=== PATIENT | male | born 1965 | race Caucasian/White ===

== ENCOUNTER 2019-05-19 09:58 | Day surgery (SDC) | payer BC ==
[2019-05-19] VITALS (588 sets, daily range): BP systolic 135–168; BP diastolic 78–100; PULSE 60–89; TEMP 2; O2SAT 76–100
[~2019-05-19] VITALS: Ht 182.9 cm; Wt 122.6 kg
[~2019-05-19 09:58] MED LIST: ALDACTONE 25MG25 M1 PO; ASPIRIN 32325 MG/TAB PO; CILOSTAZOL100 MG PO; CLEOCIN HC150 MG/CAP PO; COREG 3.123.125 MG/T PO; COREG3.125 MG PO; DIFLUCAN 100MG100 MG PO; DILAUDID 4MG TAB4 MG PO; FLAGYL500 MG PO; LEVAQUIN 5500 MG/TA1 PO; LIP PO; LIPITOR 40MG TA40 MG PO; NITRO-DUR0.4 MG/PAT TD; NITROSTAT0.4 MG/TAB SL; NO HOME MEDICATIONS; NORCO 325 MG-7.1 TAB PO; OMNICEF 300MG300 MG PO; PACERONE400 MG PO; PLAVIX 75MG TAB75 MG PO; PROAIR HFA0.09 MG/AC IH; SENOKOT8.6 MG PO; SPIRIVA RE2.5 MCG/Ac IH; TEFLARO400 MG IV; TORADOL30 MG/ML IV; TYLENOL 325MG325 MG PO; ZESTRIL 5MG5 MG PO; ZESTRIL5 MG PO; ZITHROMAX 250M250 MG PO; ZOFRAN 4MG T4 MG/TAB IV; [UNRECOGNIZED DRUG - CODE] PO
[2019-05-19 10:55] LABS: HEMATOCRIT 45.7 % (42.0-52.0); HEMOGLOBIN 15.3 g/dl (13.5-18.0); MEAN CELL VOLUME 99 fl (80.0-100.0); MEAN CORPUSCULAR HEMOGLOBIN 33 pg (27.0-31.0); MEAN CORPUSCULAR HGB CONC 34 g/dl (33.0-37.0); MEAN PLATELET VOLUME 10.5 fl (7.4-10.4); PLATELET COUNT 183 K/mm3 (130-400); REDCELL DISTRIBUTION WIDTH-CV 14.9 % (11.5-14.5)
[2019-05-19 10:59] LABS: CALCIUM 9.3 mg/dL (8.4-10.2); CREATININE, serum 0.98 (0.66-1.25); POTASSIUM 4.7 mmol/L (3.4-5.0)
[2019-05-19 11:05] LABS: INR 1.2 (0.8-3.0); PROTHROMBIN TIME 13.5 SECONDS (9.7-12.8)
[2019-05-19 11:08] LABS: PARTIAL THROMBOPLASTIN TIME 29.6 SECONDS (26.0-37.0)
--- NOTE | 2019-05-19 12:36 | NUR ---
SEE MERGE DOCUMENTATION FOR MEDICATION ADMINISTRATION TIMES AND INTRA/POST PROCEDURE SEDATION ASSESSMENTS. RIGHT RADIAL ACCESS EVALUATED BY MD; PLAN FOR RIGHT BRACHIAL APPROACH WITH US GUIDANCE.
--- NOTE | 2019-05-19 13:38 | NUR ---
Post-cath VORB from Dr Colindres for 1/2NS at 100ml/hr x 4 hrs. Also order received for 2nd bag of Angiomax to be hung. Instructions to DC Angiomax after completion of 2nd bag. Pt with EF 30%; ok with fluids, order for 20mg Lasix IV when leaving Check Inspector. All orders read back and verified with physician.
--- NOTE | 2019-05-19 14:30 | NUR ---
PATIENT NOTED TO BE GETTING UP AT SIDE OF BED SHORTLY AFTER ARRIVING TO ICU. ORDERS REFLECT BEDREST FOR 2 HOURS. PATIENT WAS EDUCATED ON BEDREST ORDER AND RESTRICTIONS FOR RIGHT ARM R/T LEFT HEART CATH PROCEDURE. HE VERBALIZES UNDERSTANDING. RIGHT BRACHIAL SITE EXAMINED AND IS CLEAN, DRY AND IS SOFT WITH NO EVIDENCE OF HEMATOMA OR BLEEDING.
--- NOTE | 2019-05-19 22:44 | NUR ---
WHILE PT WAS SLEEPING HIS OXYGEN DROPPED TO 82 ON RA. PT PLACED ON 2L NC AND SATING 93%. WILL CONTINUE TO MONITOR.
[2019-05-20] VITALS (781 sets, daily range): BP systolic 135–158; BP diastolic 71–92; PULSE 63–67; TEMP 97.3–98.7; O2SAT 84–100
[2019-05-20 05:20] LABS: BASO % 0.5 % (0.0-2.0); EOS # 0.3 (0.0-0.7); EOS % 3.2 % (0-4.0); GRAN # 5.1 (1.4-6.5); GRAN % 64.8 % (42.2-75.2); HEMATOCRIT 45.4 % (42.0-52.0); HEMOGLOBIN 14.7 g/dl (13.5-18.0); LYMPH # 1.5 (1.2-3.4); LYMPH % 18.9 % (20.0-51.0); MEAN CELL VOLUME 101 fl (80.0-100.0); MEAN CORPUSCULAR HEMOGLOBIN 33 pg (27.0-31.0); MEAN CORPUSCULAR HGB CONC 32 g/dl (33.0-37.0); MEAN PLATELET VOLUME 10.5 fl (7.4-10.4); MONO % 12.3 % (1.7-9.3); PLATELET COUNT 181 K/mm3 (130-400); RED BLOOD COUNT 4.51 M/mm3 (4.20-5.60); REDCELL DISTRIBUTION WIDTH-CV 14.9 % (11.5-14.5)
[2019-05-20 05:35] LABS: CALCIUM 9.2 mg/dL (8.4-10.2); CREATININE, serum 1.12 (0.66-1.25); POTASSIUM 4.7 mmol/L (3.4-5.0)
--- NOTE | 2019-05-20 08:43 | NUR ---
pATIENT SITTING UP LEGS OVER SIDE OF BED INDEPENDENT DENIES PAIN OR DISCOMFORT
--- NOTE | 2019-05-20 09:59 | NUR ---
Initial visit; Patient thanked Management Technician for looking in on him and offering God's blessings.
[2019-05-20] MEDS ORDERED: LASIX 40MG TABL40 MG PO (13:45)
--- NOTE | 2019-05-20 14:34 | NUR ---
pATIENT DISCHARGED WITH VBERBAL AND WRIITTEN INSTRUCTIONS. pATIENT IS ABLE TO VERBALISE INSTRUCTION S WELL SIGNED DISCHARGE PAPERWORK
== END 2019-05-20 14:06 | disposition home or self-care (01) ==
LOC: COL.CAR 09:58 → ICU 14:32 → COL.CAR 05-20 14:06
PROVIDERS: Internal Medicine Interventional Cardiology
DX: I25.10 Atherosclerotic heart disease of native coronary artery without angina pectoris (principal); I50.21 Acute systolic (congestive) heart failure; F17.210 Nicotine dependence, cigarettes, uncomplicated; Z95.5 Presence of coronary angioplasty implant and graft; Z79.82 Long term (current) use of aspirin; J44.9 Chronic obstructive pulmonary disease, unspecified
CPT/HCPCS: OP; C1725; C1769; C1874; C1887; C9600; J0583; J1644; J1940; J2250; J3010; Q9967

== ENCOUNTER 2019-05-22 21:25 | Emergency (ER) | payer BC ==
[~2019-05-22] VITALS: Ht 182.9 cm; Wt 111.4 kg
[~2019-05-22 21:25] MED LIST changes: +LASIX 40MG TABL40 MG PO
[2019-05-22 21:30] VITALS: TEMP 98.5
[2019-05-22 21:42] LABS: BASO # 0.1 (0.0-0.2); BASO % 0.4 % (0.0-2.0); EOS # 0.3 (0.0-0.7); EOS % 2.5 % (0-4.0); GRAN # 7.4 (1.4-6.5); GRAN % 59.2 % (42.2-75.2); HEMATOCRIT 48.9 % (42.0-52.0); HEMOGLOBIN 16.2 g/dl (13.5-18.0); LYMPH # 3.4 (1.2-3.4); LYMPH % 27.4 % (20.0-51.0); MEAN CELL VOLUME 100 fl (80.0-100.0); MEAN CORPUSCULAR HEMOGLOBIN 33 pg (27.0-31.0); MEAN CORPUSCULAR HGB CONC 33 g/dl (33.0-37.0); MEAN PLATELET VOLUME 10.5 fl (7.4-10.4); MONO # 1.3 (0.1-0.6); MONO % 10.3 % (1.7-9.3); RED BLOOD COUNT 4.88 M/mm3 (4.20-5.60)
[2019-05-22 21:46] LABS: PLATELET COUNT 281 K/mm3 (130-400)
[2019-05-22 21:50] LABS: INR 1.2 (0.8-3.0); PROTHROMBIN TIME 14.3 SECONDS (9.7-12.8)
[2019-05-22 21:58] LABS: ALBUMIN 3.8 gm/dL (3.5-5.0); BILIRUBIN,TOTAL 1.1 mg/dL (0.0-1.0); C-REACTIVE PROTEIN 4.5 mg/dL (0.0-0.9); CALCIUM 9.3 mg/dL (8.4-10.2); CREATININE, serum 1.51 (0.66-1.25); POTASSIUM 4.6 mmol/L (3.4-5.0); TOTAL PROTEIN 7.3 gm/dL (6.4-8.2)
[2019-05-22 22:09] LABS: TROPONIN-I 0.121 ng/mL (0.000-0.035)
[2019-05-22 22:17] LABS: MAGNESIUM 2.2 mg/dL (1.6-2.3); PHOSPHOROUS 4.6 mg/dL (2.5-4.5)
[2019-05-23 00:01] VITALS: BP 146/92; PULSE 71
== END 2019-05-23 00:08 | disposition short-term general hospital (02) ==
LOC: COL.ER 21:25
PROVIDERS: Emergency Medicine
DX: I21.4 Non-ST elevation (NSTEMI) myocardial infarction (principal); J18.1 Lobar pneumonia, unspecified organism; J90 Pleural effusion, not elsewhere classified; I11.0 Hypertensive heart disease with heart failure; I50.9 Heart failure, unspecified; E78.5 Hyperlipidemia, unspecified; I25.10 Atherosclerotic heart disease of native coronary artery without angina pectoris; F17.210 Nicotine dependence, cigarettes, uncomplicated; Z79.82 Long term (current) use of aspirin; Z95.5 Presence of coronary angioplasty implant and graft
CPT/HCPCS: J0692; J1644; J2270; J2405

== ENCOUNTER → 2019-06-01 | Outpatient (CLI) | payer BC | LOC: ZCOL.LAB 13:24 | DX: R06.02 Shortness of breath (principal) ==

== ENCOUNTER 2019-06-18 09:02 | Outpatient (RCR) | payer BC ==
[~2019-06-18] VITALS: Ht 182.9 cm; Wt 119.0 kg
--- NOTE | 2019-06-18 09:20 | NUR ---
Pt arrives to medical unit, ambulates into rm 317 with steady gait, A&O x 4. POC reviewed with pt. No needs reported at this time. Call light in reach.
[2019-06-18 09:55] VITALS: BP 152/87; PULSE 63; TEMP 97.4
[2019-06-18 10:42] LABS: CALCIUM 9.1 mg/dL (8.4-10.2); CREATININE, serum 1.35 (0.66-1.25)
--- NOTE | 2019-06-18 16:36 | NUR ---
Lasix infusion complete for today. VS assessed, stable. Pt agrees to same time for infusion on 06/19/19. Pt ambulates out of facility with steady gait.
[2019-06-18 16:37] VITALS: BP 145/69; PULSE 65
[2019-06-19 09:02] VITALS: BP 165/85; BP 175/73; PULSE 80; TEMP 97.6
--- NOTE | 2019-06-19 09:24 | NUR ---
Pt arrives to medical unit for outpt infusion, rm 317. Ambulates into rm with steady gait, A&O x 4. POC reviewed with pt, verbalizes understanding. This nurse in room to start IV. Labs pending.
[2019-06-19] MEDS ORDERED: PROAIR HFA0.09 MG/AC IH (09:59)
[2019-06-19] MEDS ORDERED: PLAVIX 75MG TAB75 MG PO (10:04)
[2019-06-19 11:15] LABS: CREATININE, serum 1.34 (0.66-1.25); POTASSIUM 3.7 mmol/L (3.4-5.0)
[2019-06-19 11:23] VITALS: BP 161/81; PULSE 65; TEMP 98.2
[2019-06-19 14:45] VITALS: BP 163/82; PULSE 72
[2019-06-21 13:14] LABS: CALCIUM 9.1 mg/dL (8.4-10.2); CREATININE, serum 1.1 (0.66-1.25); POTASSIUM 4.1 mmol/L (3.4-5.0)
[2019-06-21 13:15] VITALS: BP 140/74; PULSE 75; TEMP 98
[2019-06-21 15:30] VITALS: BP 146/80; PULSE 65; TEMP 97.2
[2019-06-21 16:56] VITALS: BP 146/72; PULSE 79; TEMP 97.9
[2019-06-22 12:55] LABS: CALCIUM 9.1 mg/dL (8.4-10.2); CREATININE, serum 1.24 (0.66-1.25); POTASSIUM 3.9 mmol/L (3.4-5.0)
[2019-06-22 13:23] VITALS: BP 134/76; PULSE 63
[2019-06-22 13:30] VITALS: BP 134/76; PULSE 62
[2019-06-22 14:00] VITALS: BP 146/76; PULSE 62
[2019-06-22 15:22] VITALS: BP 147/83; PULSE 63
[2019-06-22 16:33] VITALS: BP 142/84; PULSE 63
--- NOTE | 2019-06-22 18:09 | NUR ---
Per pt request,INT left in place for tomorrow's infusion.Wrapped in Coban.
[2019-06-23 12:10] LABS: INR 1.2 (0.8-3.0); PROTHROMBIN TIME 13.7 SECONDS (9.7-12.8)
[2019-06-23 12:20] LABS: CALCIUM 9.1 mg/dL (8.4-10.2); CREATININE, serum 1.38 (0.66-1.25); POTASSIUM 4.1 mmol/L (3.4-5.0)
[2019-06-23 12:42] VITALS: BP 114/79; PULSE 62; TEMP 98.3
[2019-06-23] MEDS ORDERED: LIPITOR 40MG TA40 MG PO (13:06)
[2019-06-23] MEDS ORDERED: COREG 3.123.125 MG/T PO (13:06)
[2019-06-23] MEDS ORDERED: PLAVIX 75MG TAB75 MG PO (13:07)
[2019-06-23] MEDS ORDERED: LASIX 40MG TABL40 MG PO (13:07)
[2019-06-23] MEDS ORDERED: ALDACTONE 25MG25 M1 PO (13:08)
[2019-06-23] MEDS ORDERED: NITROSTAT0.4 MG/TAB SL (13:08)
[2019-06-23] MEDS ORDERED: TRELEGY ELLIPT1 EACH IH (13:13)
[2019-06-23] MEDS ORDERED: PACERONE400 MG PO (13:14)
--- NOTE | 2019-06-23 13:48 | NUR ---
Pt to procedure at this time.
[2019-06-23 14:36] VITALS: BP 164/89; PULSE 74
--- NOTE | 2019-06-23 14:40 | NUR ---
Pt returned from procedure at this time.Dressing to back observed clean,dry,intact.
[2019-06-23 15:10] VITALS: BP 154/91; PULSE 71
[2019-06-23 15:53] VITALS: BP 162/103; PULSE 74
[2019-06-23 16:10] VITALS: BP 158/107; PULSE 65
--- NOTE | 2019-06-23 18:03 | NUR ---
Per pt request,INt left in place for next day infusion,wrapped in coban.pt escorted out via wheelchair.
[2019-06-24 12:35] LABS: CREATININE, serum 1.41 (0.66-1.25); POTASSIUM 3.8 mmol/L (3.4-5.0)
[2019-06-24 12:37] VITALS: BP 143/79; TEMP 98.4
--- NOTE | 2019-06-24 13:29 | NUR ---
Reviewed labs with Dr Colindres
[2019-06-24 13:37] VITALS: BP 142/82; PULSE 72; TEMP 97.8
[2019-06-24 16:15] VITALS: BP 146/83; PULSE 66; TEMP 97.7
[2019-06-25 10:43] LABS: CALCIUM 8.8 mg/dL (8.4-10.2); CREATININE, serum 1.17 (0.66-1.25); POTASSIUM 3.5 mmol/L (3.4-5.0)
--- NOTE | 2019-06-25 15:20 | NUR ---
Infusion complete, no issues noted, IV removed tip intact.
== END 2019-06-25 18:00 | disposition home or self-care (01) ==
LOC: EUO 09:02 → MEDICAL 10:20 → EUO 06-19 14:45 → MEDICAL 06-21 12:18 → EUO 06-21 12:30
PROVIDERS: Internal Medicine Interventional Cardiology; Radiology Diagnostic Radiology
DX: I50.22 Chronic systolic (congestive) heart failure (principal); J90 Pleural effusion, not elsewhere classified
CPT/HCPCS: OP; J1940

== ENCOUNTER 2019-06-23 11:49 | Outpatient (CLI) | payer BC ==
[~2019-06-23] VITALS: Ht 182.9 cm; Wt 121.6 kg
[2019-06-23 12:53] VITALS: BP 114/72; PULSE 63
[2019-06-23] MEDS ORDERED: LIPITOR 40MG TA40 MG PO (13:06)
[2019-06-23] MEDS ORDERED: COREG 3.123.125 MG/T PO (13:06)
[2019-06-23] MEDS ORDERED: PLAVIX 75MG TAB75 MG PO (13:07)
[2019-06-23] MEDS ORDERED: LASIX 40MG TABL40 MG PO (13:07)
[2019-06-23] MEDS ORDERED: NITROSTAT0.4 MG/TAB SL (13:08)
[2019-06-23] MEDS ORDERED: ALDACTONE 25MG25 M1 PO (13:08)
[2019-06-23] MEDS ORDERED: TRELEGY ELLIPT1 EACH IH (13:13)
[2019-06-23] MEDS ORDERED: PACERONE400 MG PO (13:14)
[2019-06-23 15:00] LABS: TOTAL PROTEIN,PLEURAL FLUID 2.4 gm/dL
== END 2019-06-23 17:16 | disposition home or self-care (01) ==
LOC: COL.RAD 11:49
PROVIDERS: Internal Medicine Interventional Cardiology
DX: J90 Pleural effusion, not elsewhere classified (principal)

== ENCOUNTER 2019-08-03 13:55 | Emergency (ER) | payer BC ==
[~2019-08-03] VITALS: Ht 182.9 cm; Wt 125.0 kg
[2019-08-03 13:55] VITALS: BP 178/106; TEMP 96.6
[2019-08-03 14:20] LABS: BASO % 0.4 % (0.0-2.0); EOS # 0.1 (0.0-0.7); EOS % 0.8 % (0-4.0); GRAN # 6.9 (1.4-6.5); GRAN % 71.2 % (42.2-75.2); HEMATOCRIT 51.7 % (42.0-52.0); HEMOGLOBIN 16.4 g/dl (13.5-18.0); LYMPH # 1.9 (1.2-3.4); LYMPH % 19.6 % (20.0-51.0); MEAN CELL VOLUME 102 fl (80.0-100.0); MEAN CORPUSCULAR HEMOGLOBIN 33 pg (27.0-31.0); MEAN CORPUSCULAR HGB CONC 32 g/dl (33.0-37.0); MEAN PLATELET VOLUME 9.6 fl (7.4-10.4); MONO # 0.7 (0.1-0.6); MONO % 7.7 % (1.7-9.3); PLATELET COUNT 247 K/mm3 (130-400); RED BLOOD COUNT 5.05 M/mm3 (4.20-5.60); REDCELL DISTRIBUTION WIDTH-CV 17.2 % (11.5-14.5)
[2019-08-03 14:22] LABS: INR 1.2 (0.8-3.0); PROTHROMBIN TIME 14.1 SECONDS (9.7-12.8)
[2019-08-03 14:34] LABS: BILIRUBIN,TOTAL 1.4 mg/dL (0.0-1.0); CALCIUM 9.4 mg/dL (8.4-10.2); CREATININE, serum 1.04 (0.66-1.25); POTASSIUM 4.2 mmol/L (3.4-5.0); TOTAL PROTEIN 7.4 gm/dL (6.4-8.2)
[2019-08-03 14:47] LABS: TROPONIN-I 0.047 ng/mL (0.000-0.035)
[2019-08-03 16:13] LABS: TOTAL PROTEIN,PLEURAL FLUID 2.2 gm/dL
[2019-08-03 16:29] LABS: PLEURAL FLUID RBC 0 /mm3 (0-0); PLEURAL FLUID WBC 194 /mm3
[2019-08-03 16:32] LABS: PLEURAL FLUID COLOR YELLOW
[2019-08-03 16:33] LABS: PLEURAL FLUID APPEARANCE CLEAR
[2019-08-03 17:52] VITALS: PULSE 77
== END 2019-08-03 17:52 | disposition left against medical advice (07) ==
LOC: COL.ER 13:55
PROVIDERS: Emergency Medicine; Physician Assistant
DX: J90 Pleural effusion, not elsewhere classified (principal); I50.9 Heart failure, unspecified; J95.811 Postprocedural pneumothorax; I25.10 Atherosclerotic heart disease of native coronary artery without angina pectoris; Z79.02 Long term (current) use of antithrombotics/antiplatelets; Z79.82 Long term (current) use of aspirin; Z79.51 Long term (current) use of inhaled steroids

== ENCOUNTER → 2019-08-03 | Outpatient (CLI) | payer BC ==
[~2019-08-03] MED LIST changes: +TRELEGY ELLIPT1 EACH IH
== END ==
LOC: COL.RAD 14:00
DX: J90 Pleural effusion, not elsewhere classified (principal)

== ENCOUNTER → 2019-09-07 | Outpatient (CLI) | payer BC ==
[~2019-09-07] VITALS: Ht 182.9 cm; Wt 128.0 kg
[~2019-09-07] MED LIST changes: +NITRO-DUR0.4 MG/PAT
[2019-09-07 12:52] VITALS: BP 140/80; PULSE 89
[2019-09-07 14:16] VITALS: BP 140/84; PULSE 77
== END ==
LOC: COL.RAD 12:27
DX: J90 Pleural effusion, not elsewhere classified (principal)

== ENCOUNTER 2019-09-12 15:00 | Outpatient (RCR) | payer BC ==
[2019-08-05] VITALS (15 sets, daily range): BP systolic 120–151; BP diastolic 66–122; PULSE 59–87; TEMP 97.9
--- NOTE | 2019-08-05 11:15 | NUR ---
Pt arrived via ambulatory to Express Unit via ambulatory.Pt roomed by Michael Puentes.
--- NOTE | 2019-08-05 11:25 | NUR ---
Pt observed short of breath when this nurse entered room.Attempted to get SAT but waveform not good on finger.Fingers felt cool to touch.Called Rojulian,RT for assistance.Observed 77%-80% when probe placed on forhead.Pt observed 84% after a couple minutes of rest.Will continue to monitor.
--- NOTE | 2019-08-05 11:43 | NUR ---
Rt Christel placed pt on 2 liters of oxygen via nasal cannula.Pt is now 99% on 2 liters.
--- NOTE | 2019-08-05 11:44 | NUR ---
CALL FROM CONOR DARLING OP SATS IN 70'S. PLACED ON 2 LPM NC SPO2 93%.
--- NOTE | 2019-08-05 11:50 | NUR ---
Dr Colindres notified pt arrived with Sats mid 70s after exertion.Pt Sats on room air observed 84-86 %.Christel RT assessed pt.Per pt report he is sopose to have home oxygen arranged.Pt placed on 2 liters via nasal cannula by RT. notified and order requested for oxygen and titration.Order received for BIPAP.Requested clarification if Dr Colindres wanted to admit pt.Pt currently Express Unit pt.Per Dr Colindres he does not want to admit pt.Adelina,Director called for assistance.
--- NOTE | 2019-08-05 12:00 | NUR ---
Called by Express Unit RN for assistance with patient. RN reports that SaO2 in the 70s when patient was placed on the monitor pre-infusion. Oxygen applied via NC & RN proceeded to call Dr. Colindres to update him on patient status. Order received for bipap; provider advised that bipap not a treatment completed in infusion unit & a higher level of care would be required.
[2019-08-05 12:08] LABS: CALCIUM 9.2 mg/dL (8.4-10.2); CREATININE, serum 1.09 (0.66-1.25); POTASSIUM 4.4 mmol/L (3.4-5.0)
--- NOTE | 2019-08-05 12:20 | NUR ---
Dr. Colindres arrives to Express Unit. Explained that bipap requires a higher level of care than Express Unit. Provider agreed to IMCU outpatient after much explanation & insight from Communications Program Manager.
--- NOTE | 2019-08-05 12:28 | NUR ---
PLACED BIPAP PER DR HENNESSY. 23/02 35%.
--- NOTE | 2019-08-05 12:35 | NUR ---
Patient placed on BIPAP by RT. at this time.99% on BIPAP.
--- NOTE | 2019-08-05 13:45 | NUR ---
Dr. Colindres at bedside. Patient continues on bipap. Dr. Colindres wanting to explore options for patient to have home bipap. Patient had started the process for home oxygen, but was not able to complete the process prior to coming in for treatment today. Will consult social media manager for bipap & home oxygen assistance; Elba notified. Bipap removed for 2 minutes to talk with patient about plan & options; Sao2 decreased from 98% on bipap to 88% on 2L with labored respirations noted.
--- NOTE | 2019-08-05 14:23 | NUR ---
medical services assistant in to see patient for options with bipap & home O2. Patient has not met the requirements to have a sleep study for insurance to cover home bipap. Patient does not want to pursue home bipap at this time. Patient told public health social worker that he will work with company for O2 at home. Dr. Colindres updated.
--- NOTE | 2019-08-05 14:27 | NUR ---
Livestock Yard Attendant was contacted by Jeanine in [employer] as patient may need bi-pap at night and patient requested information about coverage and options. SW contacted [employer] as Jeanine reports patient is in the process of setting up home oxygen. BE advised that with patient's insurance coverage, an in lab sleep study would be required for insurance to cover bi-pap. BE stated that patient would still owe about $500 with insurance coverage. BE stated without sleep study, patient would have to pay $2,000-$3,000. SW met with patient and provided update. Patient states at this time he plans to just get the night oxygen set up through [facility]. BE advised all patient needs to do is contact them to get the equipment set up in his home. ARASELI provided this update to Jeanine in [employer]. No additional concerns at this time.
--- NOTE | 2019-08-05 17:16 | NUR ---
ChristelRT notifed of oxygen oximetry exercise test.Per instructions of Christel,pt placed on room air at this time.
--- NOTE | 2019-08-05 17:24 | NUR ---
Bumex infusion completed.
--- NOTE | 2019-08-05 17:25 | NUR ---
Pt placed back on oxygen after testing completed.Pt requests to remain on oxygen via nasal cannula at this time.Pt requests cup of coffee.Coffee and cookie provided.
--- NOTE | 2019-08-05 17:54 | NUR ---
Dr Colindres notifed of Excer[employer]ise Oximetry test,pt 82% at rest on room air.Order received for continous home oxygen and portable.Allegra at [employer] notified.Test results faxed with order to Allegra.Per Allegra,she will bring portable oxygen to hospital prior to discharge.Mehnaz,Charge nurse notifed and spoke with GHULAM paul.Pt agrees to call [employer] after discharge for home delivery of home tank.Pt sitting at edge of bed.per pt request, BIPAP off at this time.Oxygen on at 2l/min via nasal cannula.
--- NOTE | 2019-08-05 18:45 | NUR ---
Dr Colindres notified by Mehnaz infusion completed.Home oxygen delivered.Vital signs reported and new orders writted by ICU charge,Mehnaz.See flowsheet for vitals.
--- NOTE | 2019-08-05 18:54 | NUR ---
Pt given discharge instructions by Michael Darby.This nurse present.Pt verbalizes understanding.Home oxygen delivererd here to hospital,teaching by [facility] staff on portable tank. Pt discharged with home oxygen in place via nasal cannula.INT left in place,wrapped in coban and gauze.Pt agrees to return to [facility] tomorrow for infusion.Pt instructed to come throught ER entrance in Am.
--- NOTE | 2019-08-06 07:15 | NUR ---
Patient to ICU 3 via wheelchair by Deloris DARLING with [employer]. Patient arrives with portable O2 on at 2 L and switched to hospital O2 at same flow rate. Patient A/Ox4, denies needs at this time. 0735 Tele monitor applied and VS taken at this time. Morning meal ordered per patient request. Sitting on side of bed, denies needs.
[2019-08-06 08:00] VITALS: BP 136/90; PULSE 62; TEMP 98.2
[2019-08-06 08:29] LABS: CALCIUM 8.9 mg/dL (8.4-10.2); CREATININE, serum 1.05 (0.66-1.25)
[2019-08-06 10:00] VITALS: BP 162/99; PULSE 78
[2019-08-06 12:45] VITALS: BP 154/82; PULSE 76; TEMP 98.2
[2019-08-06 14:32] VITALS: BP 151/93; PULSE 87; TEMP 98.2
--- NOTE | 2019-08-06 15:00 | NUR ---
Patient requests to leave at this time even though Dr. Colindres hasn't returned call to this RN. Patient states "I only live 4 blocks away, I can return if he wants me to." Patient transported to [facility] via wheelchair with INT intact to Left AC wrapped with coban
--- NOTE | 2019-08-07 07:41 | NUR ---
Patient arrives ambulatory with Angela BalesProgram Lead from ED waiting room. No supplemental O2 is in place and patient denies bringing any to wear. Initial O2 on room air is 84%. Patient denies dyspnea. He is placed on 2L O2 per NC and saturation climbs quickly to 92% or greater. Initial VS and assessment as charted. Lab called for BMP and dietary called for patient tray per his request. Peripheral IV to LAC with dressing CDI and without complication. Care assumed.
[2019-08-07 07:43] VITALS: BP 148/96; PULSE 86; TEMP 97.4
--- NOTE | 2019-08-07 07:52 | NUR ---
Bumex and dobutamine gtts started as per orders. See MAR.
[2019-08-07 08:27] LABS: CALCIUM 8.9 mg/dL (8.4-10.2); CREATININE, serum 0.95 (0.66-1.25); POTASSIUM 3.7 mmol/L (3.4-5.0)
[2019-08-07 13:07] VITALS: BP 168/92; PULSE 83; TEMP 97.4
--- NOTE | 2019-08-07 13:07 | NUR ---
Attempt made to contact Dr. Colindres with [facility] and patient report. MD does not answer and voicemail box is full. Patient states he will leave at this time. INT IV discontinued. Patient leaves via ambulatory.
[2019-08-08] VITALS (9 sets, daily range): BP systolic 100–169; BP diastolic 70–117; PULSE 59–90; TEMP 97.9–98.7
--- NOTE | 2019-08-08 12:40 | NUR ---
Called Dr Colindres regarding pt's increased SBP of 150's. stated to continue to monitor and if SBP does not drop back below 130 to administer SL nitro as needed to achieve SBP <130.
[2019-08-08 12:49] LABS: CALCIUM 9.4 mg/dL (8.4-10.2); CREATININE, serum 1.16 (0.66-1.25); POTASSIUM 4.7 mmol/L (3.4-5.0)
--- NOTE | 2019-08-08 13:08 | NUR ---
Entered room for another vital check on pt and pt had removed all monitor equipment including SPO2 monitor and BP again. O2 was also off. Again explained importance of monitoring him while medications were infusing and leaving o2 on for low sats. BP also remains elevated at 169/103. Will give PRN nitro as ordered.
--- NOTE | 2019-08-08 14:08 | NUR ---
Called Dr Colindres's office regarding continued increased BP's despite SL nitro. Left message with nurse who stated she will call back with orders.
--- NOTE | 2019-08-08 18:34 | NUR ---
Explained to pt that he needs to have his portable O2 at all times. Transferred to private car by francia
[2019-08-09] VITALS (10 sets, daily range): BP systolic 127–155; BP diastolic 65–105; PULSE 53–84; TEMP 98
[2019-08-09 13:55] LABS: CALCIUM 9.2 mg/dL (8.4-10.2); CREATININE, serum 1.2 (0.66-1.25); POTASSIUM 3.9 mmol/L (3.4-5.0)
[2019-08-10] VITALS (11 sets, daily range): BP systolic 113–149; BP diastolic 65–95; PULSE 62–91; TEMP 97.9–98.8
--- NOTE | 2019-08-10 12:40 | NUR ---
Pt arrived to Express Unit via ambulatory.Pt roomed by Michael Puentes.Pt arrived with portable oxygen.Placed on 2l via nasal cannula.
[2019-08-10 12:53] LABS: CREATININE, serum 1.19 (0.66-1.25); POTASSIUM 3.9 mmol/L (3.4-5.0)
--- NOTE | 2019-08-10 12:53 | NUR ---
INFUSION STARTED AT THIS TIME PER DR. HENNESSY'S ORDERS. PATIENT SITTING UP AT SIDE OF BED WITH NO COMPLAINTS AT THIS TIME. VS WNL. PATIENT REFUSES BIPAP AT THIS TIME. WILL CONTINUE TO MONITOR.
--- NOTE | 2019-08-10 16:55 | NUR ---
Report to Michael Puentes so she may assume care of pt.
[2019-08-12] VITALS (11 sets, daily range): BP systolic 141–158; BP diastolic 75–97; PULSE 67–76
[2019-08-12 12:22] LABS: CALCIUM 9.1 mg/dL (8.4-10.2); CREATININE, serum 1.14 (0.66-1.25); POTASSIUM 3.7 mmol/L (3.4-5.0)
--- NOTE | 2019-08-12 12:38 | NUR ---
nITRO 0.4 SULIGUAL PER dR Babcock DIRECCTION FOR SBP >130.
--- NOTE | 2019-08-12 13:56 | NUR ---
nITRO 0.4MG SUBLINGUAL FOR BP 154/75.
--- NOTE | 2019-08-12 14:30 | NUR ---
Repor to Michael Osuna.
--- NOTE | 2019-08-12 16:51 | NUR ---
Per pt request bipap off at this time.
[2019-08-13] VITALS (119 sets, daily range): BP systolic 121–153; BP diastolic 80–121; PULSE 58–83; TEMP 98; O2SAT 90–100
[2019-08-14] VITALS (12 sets, daily range): BP systolic 127–149; BP diastolic 75–95; PULSE 63–86; TEMP 98
[2019-08-15] VITALS (10 sets, daily range): BP systolic 134–158; BP diastolic 76–102; PULSE 68–78
--- NOTE | 2019-08-15 13:19 | NUR ---
Pt arrived via ambulatory with portable oxygen at 2 liters via nasal cannula.
[2019-08-15 13:31] LABS: CREATININE, serum 0.99 (0.66-1.25); POTASSIUM 3.6 mmol/L (3.4-5.0)
--- NOTE | 2019-08-15 17:10 | NUR ---
Report to Michael Osuna.
--- NOTE | 2019-08-15 19:44 | NUR ---
PT escorted to visitor entrance via wheelchair where his daughter is waiting for him. pt wearing portable oxygen. pt did well during infusion today, he did have some cramping to rt hand, which did improve prior to his departure. magnesium level was ordered per Dr. Colindres, result is still pending. pt aware of plan per Dr. colindres to continue the infusions roughly every other day for another 10 infusions. pt asked that we call him btw 1530and 1600 tomorrow to schedule. note left on pt's chart.
--- NOTE | 2019-08-17 08:12 | NUR ---
This nurse spoke with pt today.Per pt he is not able to come in for infusion today.Per pt he is not able to begin infusions until Thursday.Order is for every other day.Per pt he wanted to come everyday after Thursday.Pt reports he will call office to report.Appointment made for at 9am.
[2019-08-20] VITALS (9 sets, daily range): BP systolic 124–164; BP diastolic 78–102; PULSE 66–72; TEMP 98.5
[2019-08-20 09:53] LABS: HEMOGLOBIN 14.4 g/dl (13.5-18.0); MEAN CELL VOLUME 101 fl (80.0-100.0); MEAN CORPUSCULAR HEMOGLOBIN 32 pg (27.0-31.0); MEAN CORPUSCULAR HGB CONC 31 g/dl (33.0-37.0); MEAN PLATELET VOLUME 10.1 fl (7.4-10.4); PLATELET COUNT 167 K/mm3 (130-400); RED BLOOD COUNT 4.54 M/mm3 (4.20-5.60); REDCELL DISTRIBUTION WIDTH-CV 16.5 % (11.5-14.5)
[2019-08-20 10:06] LABS: CALCIUM 8.9 mg/dL (8.4-10.2); CREATININE, serum 0.93 (0.66-1.25); POTASSIUM 3.6 mmol/L (3.4-5.0)
--- NOTE | 2019-08-20 16:08 | NUR ---
Pt out for discharge at this time.
[2019-08-21] VITALS (325 sets, daily range): BP systolic 133–168; BP diastolic 83–101; PULSE 70–86; TEMP 98; O2SAT 80–100
[2019-08-21 09:51] LABS: POTASSIUM 3.7 mmol/L (3.4-5.0)
[2019-08-22] VITALS (7 sets, daily range): BP systolic 153–163; BP diastolic 85–93; PULSE 76–91; TEMP 97.4
[2019-08-22 12:54] LABS: HEMOGLOBIN 15.1 g/dl (13.5-18.0); MEAN CELL VOLUME 100 fl (80.0-100.0); MEAN CORPUSCULAR HEMOGLOBIN 32 pg (27.0-31.0); MEAN CORPUSCULAR HGB CONC 32 g/dl (33.0-37.0); MEAN PLATELET VOLUME 10.1 fl (7.4-10.4); PLATELET COUNT 191 K/mm3 (130-400); RED BLOOD COUNT 4.71 M/mm3 (4.20-5.60); REDCELL DISTRIBUTION WIDTH-CV 16.4 % (11.5-14.5)
[2019-08-22 13:03] LABS: CALCIUM 9.2 mg/dL (8.4-10.2); CREATININE, serum 0.91 (0.66-1.25); POTASSIUM 3.5 mmol/L (3.4-5.0)
--- NOTE | 2019-08-22 14:22 | NUR ---
RT was just at bs to initiate Bipap.
[2019-08-23] VITALS (9 sets, daily range): BP systolic 130–175; BP diastolic 73–102; PULSE 76–86
[2019-08-23 14:36] LABS: CALCIUM 9.2 mg/dL (8.4-10.2); CREATININE, serum 0.98 (0.66-1.25); POTASSIUM 3.3 mmol/L (3.4-5.0)
--- NOTE | 2019-08-23 16:00 | NUR ---
Pt refused offer of BIPAP today.Per pt he "sleeps with it on," unable to make phone calls with it in place.
--- NOTE | 2019-08-23 17:25 | NUR ---
Order recieved from Dr Adame.Luz Elena,ICU nurse in to adjust dosing as ordered.
--- NOTE | 2019-08-23 17:42 | NUR ---
Observed dry,cracked feet.Per pt he thinks they "have gone down."With pt permission,this nurse washed bilateral lower legs and feet,moisturizer applied to bilateral lower legs and feet.
--- NOTE | 2019-08-23 17:52 | NUR ---
Report to Michael Osuna.
[2019-08-24] VITALS (8 sets, daily range): BP systolic 136–149; BP diastolic 85–99; PULSE 66–82; TEMP 97.6–98
[2019-08-24 12:45] LABS: CALCIUM 9.1 mg/dL (8.4-10.2); POTASSIUM 3.5 mmol/L (3.4-5.0)
[2019-08-25] VITALS (7 sets, daily range): BP systolic 140–158; BP diastolic 89–98; PULSE 66–81
[2019-08-25 13:09] LABS: CALCIUM 9.3 mg/dL (8.4-10.2); CREATININE, serum 1.01 (0.66-1.25); POTASSIUM 3.5 mmol/L (3.4-5.0)
--- NOTE | 2019-08-25 18:18 | NUR ---
Report to Michael Osuna.
[2019-08-26] VITALS (9 sets, daily range): BP systolic 131–153; BP diastolic 76–97; PULSE 64–92
--- NOTE | 2019-08-26 13:20 | NUR ---
PICC intact right upper arm with sterile dressing change done with insertions site cleansed with chloraprep x 1, chlorhexidine impregnated disk applied, skin prep, stat lock, and tegaderm applied. no signs or symptoms of IV complications noted. no concerns voiced. re-wrapped with shimon to protect catheter. to continue with cares in EU. voiced understanding of instructions.
--- NOTE | 2019-08-26 18:39 | NUR ---
Report to Michael Puentes.
[2019-08-27 09:42] VITALS: BP 154/94; PULSE 84
[2019-08-27 10:45] VITALS: BP 160/112; PULSE 87
[2019-08-27 11:45] VITALS: BP 156/98; PULSE 77
[2019-08-27 12:45] VITALS: BP 158/101; PULSE 87
[2019-08-27 13:45] VITALS: BP 150/93; PULSE 79
[2019-08-27 14:45] VITALS: BP 133/87; PULSE 72
[2019-08-28 09:42] VITALS: BP 159/107; PULSE 94
[2019-08-29 12:34] VITALS: BP 152/89; PULSE 83; TEMP 97.8
[2019-08-29 12:46] LABS: CALCIUM 9.2 mg/dL (8.4-10.2); CREATININE, serum 0.93 (0.66-1.25); POTASSIUM 3.5 mmol/L (3.4-5.0)
[2019-08-29 13:30] VITALS: BP 150/98; PULSE 82
--- NOTE | 2019-08-29 14:10 | NUR ---
patient is in the express unit. Patient's last dose of IV medication is today. With sterile technique right upper arm PICC dressing change done with insertion site cleansed with ChloraPrep 1, chlorhexidine impregnated disc applied, skin prep, StatLock, and Tegaderm applied. No signs or symptoms of IV complications noted. No concerns voiced. Patient to return next Thursday at 3 p.m. for cares. Patient voiced understanding of instructions.
[2019-08-29 14:30] VITALS: BP 147/92; PULSE 80
[2019-08-29 16:30] VITALS: BP 148/94; PULSE 88
[2019-08-29 18:46] VITALS: BP 146/89; PULSE 82; TEMP 97.8
[2019-09-05 15:04] VITALS: BP 147/94; PULSE 95; TEMP 97.6
--- NOTE | 2019-09-05 15:10 | NUR ---
Here for cares. PICC intact right upper arm. with sterile technique right upper arm PICC dressing change done with insertion site cleansed with chloraprep x 1, chlorhexidine impregnated disk applied, skin prep, stat lock, and tegaderm applied. no signs or symptoms of IV complications noted. no concerns voiced. wrapped with shimon to protect catheter.
[2019-09-05 15:24] LABS: BASO % 0.3 % (0.0-2.0); EOS # 0.1 (0.0-0.7); EOS % 1.5 % (0-4.0); GRAN # 5.9 (1.4-6.5); GRAN % 74.1 % (42.2-75.2); HEMATOCRIT 47.6 % (42.0-52.0); HEMOGLOBIN 15.2 g/dl (13.5-18.0); LYMPH # 1.3 (1.2-3.4); LYMPH % 16.3 % (20.0-51.0); MEAN CELL VOLUME 101 fl (80.0-100.0); MEAN CORPUSCULAR HEMOGLOBIN 32 pg (27.0-31.0); MEAN CORPUSCULAR HGB CONC 32 g/dl (33.0-37.0); MONO # 0.6 (0.1-0.6); MONO % 7.5 % (1.7-9.3); PLATELET COUNT 145 K/mm3 (130-400); REDCELL DISTRIBUTION WIDTH-CV 16.9 % (11.5-14.5)
[2019-09-05 15:42] LABS: CALCIUM 8.7 mg/dL (8.4-10.2); POTASSIUM 3.7 mmol/L (3.4-5.0)
[~2019-09-12] VITALS: Ht 182.9 cm; Wt 128.2 kg
[2019-09-12 15:00] VITALS: BP 156/101; PULSE 97
--- NOTE | 2019-09-12 15:00 | NUR ---
Here for cares. with sterile technique right upper arm PICC sterile dressing change done with insertion site cleansed with chloraprep x 1, chlorhexidine impregnated disk applied, skin prep, stat lock, and tegaderm applied. no signs or symptoms of IV complications noted. no concerns voiced. re-wrapped with shimon to protect catheter. patient reported he has contacted element setter office for plan of care. to return next week for cares. voiced understanding of instructions.
[2019-09-12 15:27] LABS: HEMATOCRIT 47.3 % (42.0-52.0); HEMOGLOBIN 15.1 g/dl (13.5-18.0); MEAN CELL VOLUME 101 fl (80.0-100.0); MEAN CORPUSCULAR HEMOGLOBIN 32 pg (27.0-31.0); MEAN CORPUSCULAR HGB CONC 32 g/dl (33.0-37.0); PLATELET COUNT 155 K/mm3 (130-400); RED BLOOD COUNT 4.68 M/mm3 (4.20-5.60); REDCELL DISTRIBUTION WIDTH-CV 16.9 % (11.5-14.5)
[2019-09-12 15:38] LABS: CREATININE, serum 0.91 (0.66-1.25); MAGNESIUM 1.6 mg/dL (1.6-2.3); POTASSIUM 3.3 mmol/L (3.4-5.0)
[2019-09-15] MEDS ORDERED: PACERONE400 MG PO (15:21)
[2019-09-15] MEDS ORDERED: ALDACTONE50 MG PO (15:21)
[2019-09-15] MEDS ORDERED: *Potassium Replaceme MC (15:22)
[2019-09-15] MEDS ORDERED: ASPIRIN E.C. 8181 MG PO (15:22)
--- NOTE | 2019-09-16 16:19 | NUR ---
Pt was admitted to hospital.New acct created
[2019-10-04] MEDS ORDERED: CORDARONE200 MG/TAB PO (15:57)
[2019-10-04] MEDS ORDERED: ASPIRIN 32325 MG/TAB PO (15:58)
[2019-10-04] MEDS ORDERED: ENTRESTO 24 MG1 EACH PO (16:00)
[2019-10-04] MEDS ORDERED: LANOXIN 0.25M0.25 MG PO (16:01)
[2019-10-04] MEDS ORDERED: COREG 3.123.125 MG/T PO (16:02)
[2019-10-04] MEDS ORDERED: NITRO-DUR0.4 MG/PAT TD (16:03)
== END 2019-09-16 16:20 | disposition home or self-care (01) ==
LOC: EUO 15:00
PROVIDERS: Internal Medicine Interventional Cardiology
DX: I50.22 Chronic systolic (congestive) heart failure (principal); Z79.899 Other long term (current) drug therapy
CPT/HCPCS: C1751; J1250; J1940

== ENCOUNTER 2019-09-12 17:44 | Inpatient (IN) | payer BC ==
[2019-09-12] VITALS (241 sets, daily range): BP systolic 138–169; BP diastolic 90–111; PULSE 85–89; TEMP 97.5–98.2; O2SAT 70–100
[~2019-09-12] VITALS: Ht 182.9 cm; Wt 112.9 kg
--- NOTE | 2019-09-12 18:00 | NUR ---
Patient transferred to ICU03 via wheelchair as a direct admit from Dr. Colindres's office. Patient ambulates from wheelchair to bed without complications. Patient connected to bedside monitor, oxygen applied via nasal cannula, and full assessment completed. at the bedside at this time. Bed in lowest position. Call light within reach. Side rails up x2. Patient has no complaints or concerns at this time.
--- NOTE | 2019-09-12 19:43 | NUR ---
Bedside shift report given to PHONG Vega at this time.
[2019-09-13] VITALS (793 sets, daily range): BP systolic 101–155; BP diastolic 56–126; PULSE 74–92; TEMP 97.6–98.1; O2SAT 69–100
--- NOTE | 2019-09-13 05:02 | NUR ---
2055 - CLARIFIED DOBUTAMINE DRIP AND NITROGLYCERINE DRIP PARAMETERS WITH DR. HENNESSY.
[2019-09-13 06:35] LABS: BASO % 0.5 % (0.0-2.0); EOS # 0.1 (0.0-0.7); EOS % 1.7 % (0-4.0); GRAN # 4.1 (1.4-6.5); GRAN % 70.4 % (42.2-75.2); HEMATOCRIT 44.6 % (42.0-52.0); HEMOGLOBIN 14.1 g/dl (13.5-18.0); LYMPH % 16.8 % (20.0-51.0); MEAN CELL VOLUME 101 fl (80.0-100.0); MEAN CORPUSCULAR HEMOGLOBIN 32 pg (27.0-31.0); MEAN CORPUSCULAR HGB CONC 32 g/dl (33.0-37.0); MEAN PLATELET VOLUME 10.3 fl (7.4-10.4); MONO # 0.6 (0.1-0.6); MONO % 10.3 % (1.7-9.3); PLATELET COUNT 140 K/mm3 (130-400); REDCELL DISTRIBUTION WIDTH-CV 16.8 % (11.5-14.5)
--- NOTE | 2019-09-13 07:00 | NUR ---
BEDSIDE REPORT RECEIVED FROM PHONG FRANCISCO
[2019-09-13 07:54] LABS: ALBUMIN 3.4 gm/dL (3.5-5.0); BILIRUBIN,TOTAL 1.3 mg/dL (0.0-1.0); CALCIUM 8.5 mg/dL (8.4-10.2); CREATININE, serum 0.99 (0.66-1.25); POTASSIUM 3.2 mmol/L (3.4-5.0); TOTAL PROTEIN 6.6 gm/dL (6.4-8.2)
[2019-09-13 08:32] LABS: INR 1.3 (0.8-3.0); PROTHROMBIN TIME 15.2 SECONDS (9.7-12.8)
--- NOTE | 2019-09-13 10:00 | NUR ---
PATIENT HAS ALREADY MET TODAY'S FLUID RESTRICTION LIMIT. HE WAS CAUGHT FILLING HIS CUP UP AT THE SINK WHEN THIS RN WAS NOT IN ROOM. HE IS EDUCATED ON THE IMPORTANCE OF FOLLOWING FLUID RESTRICTION AND WHY IT IS IMPORTANT TO KEEP HIS FLUID INTAKE TO LESS THAN 1 LITER PER DAY. HE VERBALIZES UNDERSTANDING. BIOTENE ORDER OBTAINED FROM DR. HENNESSY TO ASSIST IN PATIENT'S COMPLAINTS OF DRY MOUTH. AWAITING IT TO COME UP FROM PHARMACY
--- NOTE | 2019-09-13 10:52 | NUR ---
Initial visit; Patient thanked Offline Editor forlooking in on him and offeringGarciad's blessings.
--- NOTE | 2019-09-13 15:00 | NUR ---
MEDICATIONS TITRATED A FEW TIMES TO HELP KEEP SBP WITHIN PREFERRED RANGE. PATIENT TOLERATING THIS WELL. HE HAS SOME C/O HEADACHE. WILL CALL DR HENNESSY IF HEADACHE GETS WORSE.
--- NOTE | 2019-09-13 19:37 | NUR ---
REPORT GIVEN TO PHONG FRANCISCO
[2019-09-14] VITALS (396 sets, daily range): BP systolic 13–179; BP diastolic 51–84; PULSE 87–98; TEMP 98–98.7; O2SAT 77–100
--- NOTE | 2019-09-14 01:38 | NUR ---
2250 - THIS RN WAS CALLED BY JIMMY PT'S LEADS WERE OFF AND UPON ENTRY TO THE ROOM, PT WAS CAUGHT HOLDING A FULL CUP OF WATER FROM SINK AND WAS GONNA GO BACK TO BED. THIS RN REMINDED AND RE-EDUCATED PT ABOUT HIS FLUID RESTRICTION. PT VERBALIZED "I JUST NEED COUPLE OF SWALLOW MY STOMACH IS CRAMPING." THIS RN WAS STRESSING AND EXPLAINING IMPORTANCE OF ADHERANCE TO FLUID RESTRICTION AND WAS ABOUT TO TAKE THE CUP BUT PT VERBALIZED "JUST DON'T TOUCH IT! I DON'T CARE, JUST CHART THAT I AM NOT COMPLIANT AND LET GERHARD KNOW. I'LL TALK TO HIM TOMORROW." THIS RN THEN ABNER SAID OKAY AND LEFT THE ROOM PT APPEARS TO BE UPSET.
[2019-09-14 06:07] LABS: BASO % 0.2 % (0.0-2.0); EOS # 0.1 (0.0-0.7); EOS % 0.8 % (0-4.0); GRAN # 7.3 (1.4-6.5); GRAN % 82.4 % (42.2-75.2); HEMOGLOBIN 13.6 g/dl (13.5-18.0); LYMPH # 0.5 (1.2-3.4); LYMPH % 5.8 % (20.0-51.0); MEAN CELL VOLUME 100 fl (80.0-100.0); MEAN CORPUSCULAR HEMOGLOBIN 33 pg (27.0-31.0); MEAN CORPUSCULAR HGB CONC 32 g/dl (33.0-37.0); MEAN PLATELET VOLUME 10.2 fl (7.4-10.4); MONO # 0.9 (0.1-0.6); MONO % 10.3 % (1.7-9.3); PLATELET COUNT 126 K/mm3 (130-400); RED BLOOD COUNT 4.19 M/mm3 (4.20-5.60); REDCELL DISTRIBUTION WIDTH-CV 16.3 % (11.5-14.5)
[2019-09-14 06:18] LABS: CALCIUM 7.9 mg/dL (8.4-10.2); CREATININE, serum 1.19 (0.66-1.25); POTASSIUM 3.7 mmol/L (3.4-5.0)
--- NOTE | 2019-09-14 07:40 | NUR ---
GOAL FOR PATIENT'S BP IS TO MAINTAIN SBP BETWEEN 100-110. DOBUTAMINE DECREASED TO LOWER BP. BP AFTER TITRATION 102/98, HR 88
--- NOTE | 2019-09-14 08:00 | NUR ---
PT NONCOMPLIANT WITH FLUID RESTRICTION. ATTEMPTED TO EDUCATE PATIENT REGARDING FR HOWEVER PATIENT STATES TO CHART THAT HE IS NONCOMPLIANT BC HE IS GOING TO CONTINUE TO DRINK.
--- NOTE | 2019-09-14 08:55 | NUR ---
LOGISTICS COORDINATOR student met with the patient to complete initial intake. The patient lives in [place] with his , Elham. The patient uses oxygen at home at 2L but currently is at 3L and receives supplies from [employer]. The patient is independent with ADLs. The patient's PCP is Dr. Schaefer and receives medications from [facility]. The patient does not have advanced directives in the EMR and was not interested in DPOA-HC form. school services officer will continue to follow to ensure a safe discharge.
--- NOTE | 2019-09-14 19:05 | NUR ---
DR HENNESSY, AT BEDSIDE FOR ASSESSMENT AND TO DISCUSS POC. NEW ORDERS RECEIVED.
--- NOTE | 2019-09-14 19:25 | NUR ---
RECEIVED REPORT FROM PHONG HEALY. PT SITTING ON SIDE OF THE BED. ON 3L VIA NC. VSS. SEE GTT TITRATIONS FLOWSHEET. CALL LIGHT AND URINAL WITHIN REACH.
--- NOTE | 2019-09-14 21:11 | NUR ---
STOPPED PER DR HENNESSY ORDERS AT BEDSIDE.
--- NOTE | 2019-09-14 22:50 | NUR ---
PT PLACED ON BIPAP AT THIS TIME. FIO2 40%.
[2019-09-15] VITALS (657 sets, daily range): BP systolic 139–160; BP diastolic 47–74; PULSE 73–89; TEMP 98–98.7; O2SAT 36–100
--- NOTE | 2019-09-15 02:45 | NUR ---
PT REQUESTS BIPAP OFF AT THIS TIME AND PLACED ON 3L VIA NC. CALL LIGHT AD URINAL WITHIN REACH. DENIES ANY FURTHER NEEDS.
[2019-09-15 06:32] LABS: BASO % 0.1 % (0.0-2.0); EOS # 0.1 (0.0-0.7); EOS % 1.7 % (0-4.0); GRAN # 5.2 (1.4-6.5); GRAN % 76.4 % (42.2-75.2); HEMATOCRIT 38.7 % (42.0-52.0); HEMOGLOBIN 12.7 g/dl (13.5-18.0); LYMPH # 0.6 (1.2-3.4); MEAN CELL VOLUME 100 fl (80.0-100.0); MEAN CORPUSCULAR HEMOGLOBIN 33 pg (27.0-31.0); MEAN CORPUSCULAR HGB CONC 33 g/dl (33.0-37.0); MEAN PLATELET VOLUME 10.7 fl (7.4-10.4); MONO # 0.9 (0.1-0.6); MONO % 13.5 % (1.7-9.3); PLATELET COUNT 112 K/mm3 (130-400); RED BLOOD COUNT 3.89 M/mm3 (4.20-5.60); REDCELL DISTRIBUTION WIDTH-CV 16.6 % (11.5-14.5)
[2019-09-15 06:40] LABS: CALCIUM 7.7 mg/dL (8.4-10.2); CREATININE, serum 0.94 (0.66-1.25); POTASSIUM 3.2 mmol/L (3.4-5.0)
[2019-09-15 08:40] LABS: INR 1.3 (0.8-3.0); PROTHROMBIN TIME 15.8 SECONDS (9.7-12.8)
--- NOTE | 2019-09-15 09:51 | NUR ---
PT BEING PREPPED FOR THORACENTESIS. CONSENT COMPLETE AND ON PT'S CHART. AWAITING RADIOLOGIST. US TECH IN ROOM.
--- NOTE | 2019-09-15 10:00 | NUR ---
DR BURDICK PRESENT TO PERFORM RIGHT THORACENTESIS. PT'S VS PREPROCEDURE HR 83, RESP 12, BP 150/50, O2 98% ON 3L. PT AWAKE, ALERT, AND COOPERATIVE. PT PLACED IN TRIPOD POSITION OVER TRAY TABLE. [employer] PRESENT TO ASSIST ALONG WITH MYSELF. 1004 DR WEBSTER INJECTED LIDOCAINE WITH USE OF LIDOCAINE TO NUMB AREA. PROVIDER THEN INSERTED NEEDLE/CATHETER TO DRAIN PLEURAL FLUID. 1034 PT TOLERATING PROCEDURE WELL. MODERATE AMT OF CLEAR, YELLOW FLUID BEING DRAINED. VS HR 82, BP 160/58, RESP 22, O2 100% ON 3L NC. 1035- VS BP 135/62, HR 86, RESP 12, O2 SAT 98% ON 3L NC. 1045- PROCEDURE COMPLETE. 1600CC DRAINED FROM RIGHT PLEURAL SPACE. PT TOLERATED WELL. VS POST PROCEDURE HR 86, RESP 12, BP 135/62, O2 SAT 99% ON 3L NC. POST PROCEDURE XRAY ORDERED AND PERFORMED BY [employer].
--- NOTE | 2019-09-15 11:46 | NUR ---
The patient is to discharge home with family this day. The patient's nurse informed MACHINE CHOCOLATE MOLDER student that the patient was inquiring about the Medicare and Medicaid process. MACHINE CHOCOLATE MOLDER student contactedRichardson with finance and he met with the patient. Richardson reports he explained the process and left contact information for the patient. There are on additional needs at this time.
--- NOTE | 2019-09-15 13:24 | NUR ---
CALLED DR HENNESSY TO DISCUSS PLAN OF CARE. UPDATED PROVIDER ON PATIENT'S THORACENTESIS AND POST THORA XRAY. PROVIDER STATES HE WOULD LIKE PATIENT TO BE ON LASIX GTT FOR NEARLY 24 HOURS. PROVIDER RECOMMENDS ADMINISTERING MORPHINE AND HAVING PATIENT SLEEP WITH BIPAP FOR A FEW HOURS AND THEN PROVIDER WILL COME SEE PATIENT AROUND 1600 AND WRITE DISCHARGE ORDERS DEPENDING ON PATIENT'S STATUS.
--- NOTE | 2019-09-15 13:53 | NUR ---
PT PLACED ON BIPAP AT PREVIOUS SETTINGS.
[2019-09-15] MEDS ORDERED: ALDACTONE50 MG PO (15:21)
[2019-09-15] MEDS ORDERED: PACERONE400 MG PO (15:21)
[2019-09-15] MEDS ORDERED: ASPIRIN E.C. 8181 MG PO (15:22)
[2019-09-15] MEDS ORDERED: *Potassium Replaceme MC (15:22)
--- NOTE | 2019-09-15 16:30 | NUR ---
PATIENT'S ARRIVED AND ASSISTED PATIENT WITH GETTING DRESSING. PT ESCORTED TO EMERGENCY ROOM ENTRANCE WHERE AWAITED WITH THE CAR. PT TRANSPORTED VIA WHEELCHAIR AND ABLE TO AMBULATE TO CAR WITHOUT DIFFICULTY. PT'S BELONGINGS DISCHAGED WITH PATIENT.
[2019-10-04] MEDS ORDERED: CORDARONE200 MG/TAB PO (15:57)
[2019-10-04] MEDS ORDERED: ASPIRIN 32325 MG/TAB PO (15:58)
[2019-10-04] MEDS ORDERED: ENTRESTO 24 MG1 EACH PO (16:00)
[2019-10-04] MEDS ORDERED: LANOXIN 0.25M0.25 MG PO (16:01)
[2019-10-04] MEDS ORDERED: COREG 3.123.125 MG/T PO (16:02)
[2019-10-04] MEDS ORDERED: NITRO-DUR0.4 MG/PAT TD (16:03)
[2019-10-11] MEDS ORDERED: entresto PO (15:29)
[2019-10-11] MEDS ORDERED: TORSEMIDE PO (15:29)
== END 2019-09-15 16:30 | disposition home or self-care (01) | DRG 187 ==
LOC: ICU 17:44
PROVIDERS: ADMIT Internal Medicine Interventional Cardiology
PROC: 0W9B3ZZ Drainage of Left Pleural Cavity, Percutaneous Approach (ICD-10-PCS; principal; 2019-09-13)
PROC: 0W993ZZ Drainage of Right Pleural Cavity, Percutaneous Approach (ICD-10-PCS; 2019-09-15)
DX: J90 Pleural effusion, not elsewhere classified (principal); I50.20 Unspecified systolic (congestive) heart failure; R18.8 Other ascites; I25.10 Atherosclerotic heart disease of native coronary artery without angina pectoris; J44.9 Chronic obstructive pulmonary disease, unspecified; F17.200 Nicotine dependence, unspecified, uncomplicated; I73.9 Peripheral vascular disease, unspecified
CPT/HCPCS: J1160; J1250; J1650; J1940; J2270; J7060

== ENCOUNTER → 2020-01-02 | Outpatient (CLI) | payer BC ==
[~2020-01-02] MED LIST changes: +*Potassium Replaceme MC; +ALDACTONE50 MG PO; +ASPIRIN E.C. 8181 MG PO; +CORDARONE200 MG/TAB PO; +ENTRESTO 24 MG1 EACH PO; +LANOXIN 0.25M0.25 MG PO; +TORSEMIDE PO; +entresto PO
[2020-01-02 16:20] LABS: HEMATOCRIT 42.6 % (42.0-52.0); HEMOGLOBIN 14.4 g/dl (13.5-18.0); MEAN CELL VOLUME 101 fl (80.0-100.0); MEAN CORPUSCULAR HEMOGLOBIN 34 pg (27.0-31.0); MEAN CORPUSCULAR HGB CONC 34 g/dl (33.0-37.0); MEAN PLATELET VOLUME 9.8 fl (7.4-10.4); PLATELET COUNT 192 K/mm3 (130-400); RED BLOOD COUNT 4.24 M/mm3 (4.20-5.60); REDCELL DISTRIBUTION WIDTH-CV 15.7 % (11.5-14.5)
[2020-01-02 16:30] LABS: ALBUMIN 4.2 gm/dL (3.5-5.0); BILIRUBIN,TOTAL 0.8 mg/dL (0.0-1.0); CALCIUM 9.7 mg/dL (8.4-10.2); CREATININE, serum 1.72 (0.66-1.25); TOTAL PROTEIN 8.1 gm/dL (6.4-8.2)
== END ==
LOC: COL.LAB 13:24 → ZCOL.LAB 13:24
PROVIDERS: Internal Medicine Interventional Cardiology
DX: Z20.828 Contact with and (suspected) exposure to other viral communicable diseases (principal)

== ENCOUNTER → 2021-05-24 | Outpatient (CLI) | payer BC ==
[2021-05-24 11:22] LABS: CALCIUM 9.6 mg/dL (8.4-10.2); CREATININE, serum 2.13 mg/dL (0.72-1.25); POTASSIUM 4.5 mmol/L (3.5-4.5)
== END ==
LOC: ZCOL.LAB 10:54
PROVIDERS: Nurse Practitioner
DX: R06.02 Shortness of breath (principal); R09.89 Other specified symptoms and signs involving the circulatory and respiratory systems; R53.81 Other malaise

== ENCOUNTER → 2021-08-30 | Outpatient (CLI) | payer BC ==
[2021-08-30 17:08] LABS: HEMATOCRIT 39.5 % (42.0-52.0); HEMOGLOBIN 13.1 g/dl (13.5-18.0); MEAN CELL VOLUME 98 fl (80.0-100.0); MEAN CORPUSCULAR HEMOGLOBIN 32 pg (27-31); MEAN CORPUSCULAR HGB CONC 33 g/dl (33.0-37.0); MEAN PLATELET VOLUME 9.9 fl (7.4-10.4); PLATELET COUNT 181 K/mm3 (130-400); RED BLOOD COUNT 4.04 M/mm3 (4.20-5.60); REDCELL DISTRIBUTION WIDTH-CV 17.4 % (11.5-14.5)
[2021-08-30 17:36] LABS: ALBUMIN 3.6 gm/dL (3.5-5.0); BILIRUBIN,TOTAL 0.5 mg/dL (0.2-1.2); CALCIUM 9.6 mg/dL (8.4-10.2); CREATININE, serum 2.47 mg/dL (0.72-1.25); MAGNESIUM 2.2 mg/dL (1.6-2.6); POTASSIUM 4.8 mmol/L (3.5-4.5); TOTAL PROTEIN 7.7 gm/dL (6.2-8.1)
[2021-08-30 17:56] LABS: THYROID STIMULATING HORMONE 2.997 uIU/mL (0.350-4.940)
[2021-08-30 18:12] LABS: TROPONIN-I 0.04 ng/mL (0.00-0.033)
== END ==
LOC: COL.LAB 16:34
PROVIDERS: Nurse Practitioner
DX: I49.01 Ventricular fibrillation (principal)

== ENCOUNTER 2022-03-18 11:14 | Inpatient (IN) | payer BC ==
[~2022-03-18] VITALS: Ht 182.9 cm; Wt 121.0 kg
[~2022-03-18 11:14] MED LIST changes: +DEMADEX5 MG PO; -ENTRESTO 24 MG1 EACH PO; +ENTRESTO 49 MG1 EACH PO; -TORSEMIDE PO
[2022-03-18 11:50] LABS: BASO % 0.4 % (0.0-2.0); EOS # 0.1 K/mm3 (0.0-0.7); EOS % 1.7 % (0.0-4.0); GRAN # 3.9 K/mm3 (1.4-6.5); GRAN % 71.6 % (42.2-75.2); HEMOGLOBIN 14.5 g/dl (13.5-18.0); LYMPH # 0.9 K/mm3 (1.2-3.4); MEAN CELL VOLUME 97 fl (80.0-100.0); MEAN CORPUSCULAR HEMOGLOBIN 31 pg (27-31); MEAN CORPUSCULAR HGB CONC 32 g/dl (33.0-37.0); MEAN PLATELET VOLUME 10.9 fl (7.4-10.4); MONO # 0.5 K/mm3 (0.1-0.6); MONO % 9.9 % (1.7-9.3); PLATELET COUNT 134 K/mm3 (130-400); RED BLOOD COUNT 4.63 M/mm3 (4.20-5.60); REDCELL DISTRIBUTION WIDTH-CV 18.7 % (11.5-14.5)
[2022-03-18 12:00] LABS: BILIRUBIN,TOTAL 1.6 mg/dL (0.2-1.2); CREATININE, serum 1.93 mg/dL (0.72-1.25); POTASSIUM 4.6 mmol/L (3.5-4.5); TOTAL PROTEIN 6.5 gm/dL (6.2-8.1)
[2022-03-18 12:09] LABS: INR 1.2 (0.8-3.0); PROTHROMBIN TIME 14.1 SECONDS (9.7-12.8)
[2022-03-18 12:10] LABS: TROPONIN-I 0.081 ng/mL (0.00-0.033)
[2022-03-18 12:12] LABS: PARTIAL THROMBOPLASTIN TIME 23.7 SECONDS (26.0-37.0)
[2022-03-18 14:20] VITALS: BP 154/115; PULSE 94; TEMP 98
[2022-03-18 15:42] VITALS: BP 140/94; PULSE 85; TEMP 97.8
[2022-03-18 20:50] VITALS: BP 106/63; PULSE 73; TEMP 98.3
[2022-03-18 23:49] VITALS: BP 116/70; PULSE 59; TEMP 97.7
[2022-03-19 04:26] VITALS: BP 127/79; PULSE 67; TEMP 98.2
[2022-03-19 05:57] LABS: BASO % 0.4 % (0.0-2.0); EOS # 0.2 K/mm3 (0.0-0.7); GRAN # 3.4 K/mm3 (1.4-6.5); GRAN % 69.5 % (42.2-75.2); HEMATOCRIT 44.3 % (42.0-52.0); HEMOGLOBIN 14.1 g/dl (13.5-18.0); LYMPH # 0.8 K/mm3 (1.2-3.4); LYMPH % 15.6 % (20.0-51.0); MEAN CELL VOLUME 98 fl (80.0-100.0); MEAN CORPUSCULAR HEMOGLOBIN 31 pg (27-31); MEAN CORPUSCULAR HGB CONC 32 g/dl (33.0-37.0); MEAN PLATELET VOLUME 11.5 fl (7.4-10.4); MONO # 0.6 K/mm3 (0.1-0.6); MONO % 11.3 % (1.7-9.3); PLATELET COUNT 133 K/mm3 (130-400); RED BLOOD COUNT 4.51 M/mm3 (4.20-5.60); REDCELL DISTRIBUTION WIDTH-CV 18.7 % (11.5-14.5)
[2022-03-19 06:12] LABS: CALCIUM 9.1 mg/dL (8.4-10.2); CREATININE, serum 1.88 mg/dL (0.72-1.25); POTASSIUM 4.3 mmol/L (3.5-4.5)
[2022-03-19 07:59] VITALS: BP 134/68; PULSE 70; TEMP 98.2
[2022-03-19 09:50] LABS: CHOLESTEROL RISK RATIO 4.4
[2022-03-19 12:00] VITALS: BP 117/73; PULSE 58; TEMP 98.4
[2022-03-19 12:01] LABS: BILIRUBIN,DIRECT 0.8 mg/dL (0.0-0.5); BILIRUBIN,TOTAL 1.5 mg/dL (0.2-1.2)
[2022-03-19 13:36] LABS: PROTEIN, TOTAL URINE random 20 mg/dL; URINE TOTAL VOLUME - 24 HRS 1525 mL/24 hr
[2022-03-19 15:57] VITALS: BP 116/69; PULSE 80; TEMP 98.3
[2022-03-19 17:29] LABS: PH 5.5 (5.0-8.5); URINE APPEARANCE Clear (CLEAR/HAZY); URINE BLOOD 2+ (NEGATIVE); URINE COLOR Yellow (YELLOW); URINE GLUCOSE Negative (NEGATIVE); URINE KETONE Negative (NEGATIVE); URINE NITRATE Negative (NEGATIVE); URINE PROTEIN(semi-quant) Negative (NEGATIVE); URINE UROBILINOGEN 0.2 E.U/dL (0.2-1.0)
[2022-03-19 17:30] LABS: COLLECTION METHOD CLEAN CATCH; MUCOUS Present (NOT PRESENT); SQUAMOUS EPITHELIAL None Seen /hpf (0-10); URINE BACTERIA None Seen /hpf (NONE SEEN); URINE RBC 20-50 /hpf (0-2); URINE WBC 0-2 /hpf (0-2)
[2022-03-19 21:12] VITALS: BP 110/64; PULSE 76; TEMP 98.3
[2022-03-20] VITALS (131 sets, daily range): BP systolic 108–151; BP diastolic 60–80; PULSE 56–79; TEMP 97.4–98.3; O2SAT 81–100
[2022-03-20 07:02] LABS: ALBUMIN 3.2 gm/dL (3.5-5.0); BILIRUBIN,TOTAL 1.4 mg/dL (0.2-1.2); CALCIUM 9.2 mg/dL (8.4-10.2); CREATININE, serum 1.87 mg/dL (0.72-1.25); MAGNESIUM 2.4 mg/dL (1.6-2.6); POTASSIUM 4.5 mmol/L (3.5-4.5); TOTAL PROTEIN 6.6 gm/dL (6.2-8.1)
[2022-03-20 07:11] LABS: BASO % 0.4 % (0.0-2.0); EOS # 0.2 K/mm3 (0.0-0.7); EOS % 3.1 % (0.0-4.0); GRAN % 73.9 % (42.2-75.2); HEMATOCRIT 45.4 % (42.0-52.0); HEMOGLOBIN 14.3 g/dl (13.5-18.0); LYMPH # 0.6 K/mm3 (1.2-3.4); LYMPH % 11.2 % (20.0-51.0); MEAN CELL VOLUME 101 fl (80.0-100.0); MEAN CORPUSCULAR HEMOGLOBIN 32 pg (27-31); MEAN CORPUSCULAR HGB CONC 32 g/dl (33.0-37.0); MEAN PLATELET VOLUME 11.2 fl (7.4-10.4); MONO # 0.6 K/mm3 (0.1-0.6); MONO % 11.2 % (1.7-9.3); PLATELET COUNT 128 K/mm3 (130-400); RED BLOOD COUNT 4.51 M/mm3 (4.20-5.60); REDCELL DISTRIBUTION WIDTH-CV 18.9 % (11.5-14.5)
[2022-03-20 17:33] LABS: CALCIUM 9.3 mg/dL (8.4-10.2); CREATININE, serum 2.03 mg/dL (0.72-1.25); MAGNESIUM 2.4 mg/dL (1.6-2.6); POTASSIUM 5.4 mmol/L (3.5-4.5)
[2022-03-20 20:22] LABS: HEPATITIS B CORE AB,TOTAL Negative (Negative); HEPATITIS B SURFACE ANTIGEN Negative (Negative)
[2022-03-20 20:23] LABS: HEPATITIS B SURFACE ANTIBODY <2.0 (()); HEPATITIS C VIRUS ANTIBODY Negative (Negative)
[2022-03-20 23:49] LABS: CALCIUM 9.2 mg/dL (8.4-10.2); CREATININE, serum 1.88 mg/dL (0.72-1.25); POTASSIUM 4.7 mmol/L (3.5-4.5)
[2022-03-21] VITALS (905 sets, daily range): BP systolic 108–147; BP diastolic 33–84; PULSE 65–88; TEMP 98–98.4; O2SAT 84–100
[2022-03-21 03:52] LABS: CERULOPLASMIN 36 mg/dL (20-60)
[2022-03-21 04:10] LABS: HEPATITIS AB (HAV) IGG INDEX 0.26 Index (<=1.00)
[2022-03-21 06:04] LABS: CALCIUM 9.2 mg/dL (8.4-10.2); CREATININE, serum 1.84 mg/dL (0.72-1.25); POTASSIUM 4.7 mmol/L (3.5-4.5)
[2022-03-21 06:16] LABS: BASO % 0.2 % (0.0-2.0); EOS # 0.1 K/mm3 (0.0-0.7); EOS % 1.8 % (0.0-4.0); GRAN # 3.6 K/mm3 (1.4-6.5); GRAN % 72.4 % (42.2-75.2); HEMATOCRIT 42.9 % (42.0-52.0); HEMOGLOBIN 13.5 g/dl (13.5-18.0); LYMPH # 0.6 K/mm3 (1.2-3.4); LYMPH % 11.7 % (20.0-51.0); MEAN CELL VOLUME 100 fl (80.0-100.0); MEAN CORPUSCULAR HEMOGLOBIN 32 pg (27-31); MEAN CORPUSCULAR HGB CONC 32 g/dl (33.0-37.0); MEAN PLATELET VOLUME 10.9 fl (7.4-10.4); MONO # 0.7 K/mm3 (0.1-0.6); MONO % 13.7 % (1.7-9.3); PLATELET COUNT 117 K/mm3 (130-400); RED BLOOD COUNT 4.29 M/mm3 (4.20-5.60); REDCELL DISTRIBUTION WIDTH-CV 18.7 % (11.5-14.5)
[2022-03-22] VITALS (26 sets, daily range): BP systolic 98–141; BP diastolic 62–76; PULSE 66–91; TEMP 98–99.4; O2SAT 93–100
[2022-03-22 06:13] LABS: BASO % 0.2 % (0.0-2.0); EOS # 0.1 K/mm3 (0.0-0.7); EOS % 1.6 % (0.0-4.0); GRAN # 5.3 K/mm3 (1.4-6.5); GRAN % 82.9 % (42.2-75.2); HEMATOCRIT 41.6 % (42.0-52.0); HEMOGLOBIN 13.4 g/dl (13.5-18.0); LYMPH # 0.3 K/mm3 (1.2-3.4); LYMPH % 4.7 % (20.0-51.0); MEAN CELL VOLUME 97 fl (80.0-100.0); MEAN CORPUSCULAR HEMOGLOBIN 31 pg (27-31); MEAN CORPUSCULAR HGB CONC 32 g/dl (33.0-37.0); MEAN PLATELET VOLUME 10.9 fl (7.4-10.4); MONO # 0.7 K/mm3 (0.1-0.6); MONO % 10.3 % (1.7-9.3); PLATELET COUNT 110 K/mm3 (130-400); RED BLOOD COUNT 4.27 M/mm3 (4.20-5.60); REDCELL DISTRIBUTION WIDTH-CV 18.6 % (11.5-14.5)
[2022-03-22 06:35] LABS: ALBUMIN 2.7 gm/dL (3.5-5.0); CALCIUM 9.1 mg/dL (8.4-10.2); CREATININE, serum 1.76 mg/dL (0.72-1.25); MAGNESIUM 2.1 mg/dL (1.6-2.6); PHOSPHOROUS 3.2 mg/dL (2.3-4.7); POTASSIUM 4.5 mmol/L (3.5-4.5)
[2022-03-22 15:50] LABS: MAGNESIUM 2.2 mg/dL (1.6-2.6); POTASSIUM 4.6 mmol/L (3.5-4.5)
[2022-03-23] VITALS (231 sets, daily range): BP systolic 118–139; BP diastolic 64–76; PULSE 75–85; TEMP 98.4–100; O2SAT 68–100
[2022-03-23 06:46] LABS: BASO % 0.4 % (0.0-2.0); EOS # 0.1 K/mm3 (0.0-0.7); EOS % 1.6 % (0.0-4.0); GRAN # 4.4 K/mm3 (1.4-6.5); GRAN % 80.8 % (42.2-75.2); HEMATOCRIT 37.9 % (42.0-52.0); HEMOGLOBIN 12.4 g/dl (13.5-18.0); LYMPH # 0.3 K/mm3 (1.2-3.4); LYMPH % 6.2 % (20.0-51.0); MEAN CELL VOLUME 95 fl (80.0-100.0); MEAN CORPUSCULAR HEMOGLOBIN 31 pg (27-31); MEAN CORPUSCULAR HGB CONC 33 g/dl (33.0-37.0); MEAN PLATELET VOLUME 11.3 fl (7.4-10.4); MONO # 0.6 K/mm3 (0.1-0.6); MONO % 10.6 % (1.7-9.3); PLATELET COUNT 99 K/mm3 (130-400); REDCELL DISTRIBUTION WIDTH-CV 18.6 % (11.5-14.5)
[2022-03-23 07:00] LABS: ALBUMIN 3.5 gm/dL (3.5-5.0); CALCIUM 9.5 mg/dL (8.4-10.2); CREATININE, serum 2.04 mg/dL (0.72-1.25); MAGNESIUM 2.2 mg/dL (1.6-2.6); PHOSPHOROUS 3.6 mg/dL (2.3-4.7); POTASSIUM 4.6 mmol/L (3.5-4.5)
[2022-03-24] VITALS (1302 sets, daily range): BP systolic 98–409; BP diastolic 58–86; PULSE 80–88; TEMP 98.1–99.1; O2SAT 86–100
[2022-03-24 01:21] LABS: CALCIUM 9.7 mg/dL (8.4-10.2); CREATININE, serum 2.4 mg/dL (0.72-1.25); POTASSIUM 4.6 mmol/L (3.5-4.5)
[2022-03-24 06:51] LABS: HEMATOCRIT 38.9 % (42.0-52.0); HEMOGLOBIN 12.8 g/dl (13.5-18.0); MEAN CELL VOLUME 93 fl (80.0-100.0); MEAN CORPUSCULAR HEMOGLOBIN 31 pg (27-31); MEAN CORPUSCULAR HGB CONC 33 g/dl (33.0-37.0); MEAN PLATELET VOLUME 11.5 fl (7.4-10.4); PLATELET COUNT 97 K/mm3 (130-400); RED BLOOD COUNT 4.17 M/mm3 (4.20-5.60); REDCELL DISTRIBUTION WIDTH-CV 18.6 % (11.5-14.5)
[2022-03-24 07:07] LABS: CALCIUM 9.6 mg/dL (8.4-10.2); CREATININE, serum 2.41 mg/dL (0.72-1.25); MAGNESIUM 2.4 mg/dL (1.6-2.6); PHOSPHOROUS 3.9 mg/dL (2.3-4.7); POTASSIUM 4.3 mmol/L (3.5-4.5)
[2022-03-24 07:53] LABS: BAND 7 % (0-10); LYMPHOCYTE 8 % (20.0-51.0); NEUTROPHILS 76 % (42.0-75.2); PLATELET ESTIMATE DECREASED (NORMAL)
[2022-03-24 11:37] LABS: ANTISMOOTH MUSCLE ANTIBODY Negative (Negative)
[2022-03-25] VITALS (1055 sets, daily range): BP systolic 93–132; BP diastolic 59–71; PULSE 71–80; TEMP 97.5–98.8; O2SAT 86–100
[2022-03-25 06:03] LABS: BASO % 0.2 % (0.0-2.0); EOS # 0.1 K/mm3 (0.0-0.7); EOS % 2.3 % (0.0-4.0); GRAN # 4.5 K/mm3 (1.4-6.5); GRAN % 78.6 % (42.2-75.2); HEMATOCRIT 39.4 % (42.0-52.0); HEMOGLOBIN 13.1 g/dl (13.5-18.0); LYMPH # 0.3 K/mm3 (1.2-3.4); LYMPH % 5.4 % (20.0-51.0); MEAN CELL VOLUME 96 fl (80.0-100.0); MEAN CORPUSCULAR HEMOGLOBIN 32 pg (27-31); MEAN CORPUSCULAR HGB CONC 33 g/dl (33.0-37.0); MONO # 0.8 K/mm3 (0.1-0.6); MONO % 13.2 % (1.7-9.3); PLATELET COUNT 102 K/mm3 (130-400); RED BLOOD COUNT 4.12 M/mm3 (4.20-5.60); REDCELL DISTRIBUTION WIDTH-CV 18.6 % (11.5-14.5)
[2022-03-25 06:15] LABS: ALBUMIN 3.3 gm/dL (3.5-5.0); CALCIUM 9.3 mg/dL (8.4-10.2); CREATININE, serum 2.68 mg/dL (0.72-1.25); MAGNESIUM 2.2 mg/dL (1.6-2.6); PHOSPHOROUS 3.7 mg/dL (2.3-4.7)
[2022-03-26] VITALS (1004 sets, daily range): BP systolic 97–165; BP diastolic 45–103; PULSE 58–79; TEMP 97.4–98.4; O2SAT 63–100
[2022-03-26 05:46] LABS: BASO % 0.3 % (0.0-2.0); EOS # 0.2 K/mm3 (0.0-0.7); GRAN # 5.8 K/mm3 (1.4-6.5); GRAN % 75.7 % (42.2-75.2); HEMATOCRIT 39.9 % (42.0-52.0); HEMOGLOBIN 13.4 g/dl (13.5-18.0); LYMPH # 0.6 K/mm3 (1.2-3.4); LYMPH % 7.2 % (20.0-51.0); MEAN CELL VOLUME 92 fl (80.0-100.0); MEAN CORPUSCULAR HEMOGLOBIN 31 pg (27-31); MEAN CORPUSCULAR HGB CONC 34 g/dl (33.0-37.0); MEAN PLATELET VOLUME 11.5 fl (7.4-10.4); MONO # 1.1 K/mm3 (0.1-0.6); MONO % 14.1 % (1.7-9.3); PLATELET COUNT 115 K/mm3 (130-400); RED BLOOD COUNT 4.33 M/mm3 (4.20-5.60); REDCELL DISTRIBUTION WIDTH-CV 18.6 % (11.5-14.5)
[2022-03-26 06:02] LABS: ALBUMIN 3.2 gm/dL (3.5-5.0); CALCIUM 9.5 mg/dL (8.4-10.2); CREATININE, serum 3.13 mg/dL (0.72-1.25); MAGNESIUM 2.6 mg/dL (1.6-2.6); PHOSPHOROUS 3.9 mg/dL (2.3-4.7); POTASSIUM 4.1 mmol/L (3.5-4.5)
[2022-03-27] VITALS (207 sets, daily range): BP systolic 97–110; BP diastolic 49–65; PULSE 54–72; TEMP 97.4–98; O2SAT 85–100
[2022-03-27 06:12] LABS: BASO % 0.3 % (0.0-2.0); EOS # 0.2 K/mm3 (0.0-0.7); EOS % 2.5 % (0.0-4.0); GRAN # 4.9 K/mm3 (1.4-6.5); GRAN % 73.7 % (42.2-75.2); HEMATOCRIT 38.8 % (42.0-52.0); HEMOGLOBIN 13.1 g/dl (13.5-18.0); LYMPH # 0.7 K/mm3 (1.2-3.4); LYMPH % 9.9 % (20.0-51.0); MEAN CELL VOLUME 91 fl (80.0-100.0); MEAN CORPUSCULAR HEMOGLOBIN 31 pg (27-31); MEAN CORPUSCULAR HGB CONC 34 g/dl (33.0-37.0); MEAN PLATELET VOLUME 11.9 fl (7.4-10.4); MONO # 0.9 K/mm3 (0.1-0.6); PLATELET COUNT 127 K/mm3 (130-400); RED BLOOD COUNT 4.27 M/mm3 (4.20-5.60); REDCELL DISTRIBUTION WIDTH-CV 18.7 % (11.5-14.5)
[2022-03-27 06:32] LABS: ALBUMIN 3.1 gm/dL (3.5-5.0); CALCIUM 9.4 mg/dL (8.4-10.2); CREATININE, serum 3.69 mg/dL (0.72-1.25); MAGNESIUM 2.6 mg/dL (1.6-2.6); PHOSPHOROUS 3.6 mg/dL (2.3-4.7); POTASSIUM 4.5 mmol/L (3.5-4.5)
[2022-03-28] VITALS (8 sets, daily range): BP systolic 99–118; BP diastolic 45–69; PULSE 66–77; TEMP 97.3–98.7
[2022-03-28 06:30] LABS: BASO % 0.3 % (0.0-2.0); EOS # 0.2 K/mm3 (0.0-0.7); EOS % 2.7 % (0.0-4.0); GRAN # 5.4 K/mm3 (1.4-6.5); GRAN % 73.4 % (42.2-75.2); HEMATOCRIT 37.9 % (42.0-52.0); LYMPH # 0.8 K/mm3 (1.2-3.4); LYMPH % 10.2 % (20.0-51.0); MEAN CELL VOLUME 91 fl (80.0-100.0); MEAN CORPUSCULAR HEMOGLOBIN 31 pg (27-31); MEAN CORPUSCULAR HGB CONC 34 g/dl (33.0-37.0); MEAN PLATELET VOLUME 11.5 fl (7.4-10.4); MONO # 0.9 K/mm3 (0.1-0.6); MONO % 12.6 % (1.7-9.3); PLATELET COUNT 147 K/mm3 (130-400); RED BLOOD COUNT 4.17 M/mm3 (4.20-5.60); REDCELL DISTRIBUTION WIDTH-CV 18.8 % (11.5-14.5)
[2022-03-28 06:42] LABS: ALBUMIN 3.3 gm/dL (3.5-5.0); BILIRUBIN,DIRECT 5.1 mg/dL (0.0-0.5); BILIRUBIN,TOTAL 7.1 mg/dL (0.2-1.2); CALCIUM 9.5 mg/dL (8.4-10.2); CREATININE, serum 3.97 mg/dL (0.72-1.25); MAGNESIUM 2.4 mg/dL (1.6-2.6); PHOSPHOROUS 3.1 mg/dL (2.3-4.7); POTASSIUM 4.8 mmol/L (3.5-4.5)
[2022-03-29 00:37] VITALS: BP 109/49; PULSE 71; TEMP 98
[2022-03-29 04:21] VITALS: BP 102/44; PULSE 64; TEMP 98.5
[2022-03-29 08:10] VITALS: BP 117/51; PULSE 64; TEMP 97.4
[2022-03-29 08:42] LABS: HEMATOCRIT 38.1 % (42.0-52.0); HEMOGLOBIN 12.6 g/dl (13.5-18.0); MEAN CELL VOLUME 93 fl (80.0-100.0); MEAN CORPUSCULAR HEMOGLOBIN 31 pg (27-31); MEAN CORPUSCULAR HGB CONC 33 g/dl (33.0-37.0); MEAN PLATELET VOLUME 11.2 fl (7.4-10.4); PLATELET COUNT 164 K/mm3 (130-400); RED BLOOD COUNT 4.12 M/mm3 (4.20-5.60); REDCELL DISTRIBUTION WIDTH-CV 18.7 % (11.5-14.5)
[2022-03-29 08:48] LABS: INR 1.4 (0.8-3.0); PROTHROMBIN TIME 16.1 SECONDS (9.7-12.8)
[2022-03-29 08:59] LABS: ALBUMIN 3.2 gm/dL (3.5-5.0); BILIRUBIN,DIRECT 3.5 mg/dL (0.0-0.5); BILIRUBIN,TOTAL 4.6 mg/dL (0.2-1.2); CREATININE, serum 4.64 mg/dL (0.72-1.25); POTASSIUM 4.6 mmol/L (3.5-4.5); TOTAL PROTEIN 7.1 gm/dL (6.2-8.1)
[2022-03-29 09:10] LABS: MAGNESIUM 2.3 mg/dL (1.6-2.6); PHOSPHOROUS 3.1 mg/dL (2.3-4.7)
[2022-03-29 09:47] LABS: EOSINOPHIL 2 % (0-4); LYMPHOCYTE 10 % (20.0-51.0); NEUTROPHILS 75 % (42.0-75.2)
[2022-03-29 09:48] LABS: ANISOCYTOSIS 2+; PLATELET ESTIMATE NORMAL (NORMAL)
[2022-03-29] MEDS ORDERED: JARDIANCE10 PO (14:33)
[2022-03-29] MEDS ORDERED: ALDACTONE 25MG25 M1 PO (14:33)
[2022-03-29] MEDS ORDERED: TOPROL XL 25MG25 MG PO (14:34)
[2022-03-29] MEDS ORDERED: ASPIRIN E.C. 8181 MG PO (14:35)
[2022-03-29] MEDS ORDERED: ELIQUIS 2.5 PO (14:36)
== END 2022-03-29 15:20 | disposition home or self-care (01) | DRG 280 ==
LOC: COL.ER 11:14 → MEDICAL 12:36 → ICU 12:36 → MEDICAL 12:36 → ICU 03-20 20:10 → MEDICAL 03-27 05:30
PROVIDERS: Emergency Medicine; Internal Medicine; Internal Medicine Cardiovascular Disease; Internal Medicine Gastroenterology; Internal Medicine Interventional Cardiology; Nurse Practitioner; Nurse Practitioner Family; Physician Assistant; Registered Nurse; Student in an Organized Health Care Education/Training Program; ADMIT Internal Medicine
PROC: 02HV33Z Insertion of Infusion Device into Superior Vena Cava, Percutaneous Approach (ICD-10-PCS; 2022-03-24)
PROC: 5A1D70Z Performance of Urinary Filtration, Intermittent, Less than 6 Hours Per Day (ICD-10-PCS; principal; 2022-03-25)
PROC: 5A09357 Assistance with Respiratory Ventilation, Less than 24 Consecutive Hours, Continuous Positive Airway Pressure (ICD-10-PCS; 2022-03-25)
PROC: 0JH63XZ Insertion of Tunneled Vascular Access Device into Chest Subcutaneous Tissue and Fascia, Percutaneous Approach (ICD-10-PCS; 2022-03-28)
PROC: 02HV33Z Insertion of Infusion Device into Superior Vena Cava, Percutaneous Approach (ICD-10-PCS; 2022-03-28)
PROC: B5181ZA Fluoroscopy of Superior Vena Cava using Low Osmolar Contrast, Guidance (ICD-10-PCS; 2022-03-28)
DX: I13.0 Hypertensive heart and chronic kidney disease with heart failure and stage 1 through stage 4 chronic kidney disease, or unspecified chronic kidney disease (principal); I50.23 Acute on chronic systolic (congestive) heart failure; I21.A1 Myocardial infarction type 2; J96.21 Acute and chronic respiratory failure with hypoxia; J91.8 Pleural effusion in other conditions classified elsewhere; R18.8 Other ascites; I31.3 Pericardial effusion (noninflammatory); N17.9 Acute kidney failure, unspecified; I47.2 Ventricular tachycardia; I25.10 Atherosclerotic heart disease of native coronary artery without angina pectoris; F17.210 Nicotine dependence, cigarettes, uncomplicated; Z20.822 Contact with and (suspected) exposure to COVID-19; E87.5 Hyperkalemia; N18.30 Chronic kidney disease, stage 3 unspecified; N28.89 Other specified disorders of kidney and ureter; J44.9 Chronic obstructive pulmonary disease, unspecified; D63.8 Anemia in other chronic diseases classified elsewhere; F10.10 Alcohol abuse, uncomplicated; K74.60 Unspecified cirrhosis of liver; G47.33 Obstructive sleep apnea (adult) (pediatric); I73.9 Peripheral vascular disease, unspecified; E88.09 Other disorders of plasma-protein metabolism, not elsewhere classified; N50.89 Other specified disorders of the male genital organs; E80.6 Other disorders of bilirubin metabolism; D50.9 Iron deficiency anemia, unspecified; I48.91 Unspecified atrial fibrillation; I27.20 Pulmonary hypertension, unspecified; Z79.01 Long term (current) use of anticoagulants; Z98.52 Vasectomy status; Z95.5 Presence of coronary angioplasty implant and graft; Z79.82 Long term (current) use of aspirin; Z99.81 Dependence on supplemental oxygen
CPT/HCPCS: OP; A9270; C1750; C1751; G0378; J0690; J1250; J1265; J1644; J1940; J2704; J7050; P9047

== ENCOUNTER → 2022-05-07 | Outpatient (CLI) | payer BC ==
[~2022-05-07] VITALS: Ht 182.9 cm; Wt 113.0 kg
[~2022-05-07] MED LIST changes: +COUMADIN 1010 MG/TAB PO; +DEMADEX 20MG20 M1 PO; +ELIQUIS 2.5 PO; +JARDIANCE10; +JARDIANCE10 PO; +TOPROL XL 25MG25 MG PO
[2022-05-07 08:58] VITALS: BP 143/76; PULSE 78; TEMP 97.5
[2022-05-07 09:23] LABS: INR 1.3 (0.8-3.0)
[2022-05-07 10:00] VITALS: BP 111/73; PULSE 59
== END ==
LOC: COL.RAD 08:27
PROVIDERS: Radiology Diagnostic Radiology
DX: Z49.01 Encounter for fitting and adjustment of extracorporeal dialysis catheter (principal)

== ENCOUNTER 2022-09-05 10:40 | Inpatient (IN) | payer BC ==
[~2022-09-05] VITALS: Ht 182.9 cm; Wt 113.8 kg
[2022-09-05 11:12] LABS: BASO % 0.3 % (0.0-2.0); EOS # 0.2 K/mm3 (0.0-0.7); EOS % 2.3 % (0.0-4.0); GRAN # 5.5 K/mm3 (1.4-6.5); GRAN % 79.4 % (42.2-75.2); HEMATOCRIT 44.5 % (42.0-52.0); HEMOGLOBIN 13.2 g/dl (13.5-18.0); LYMPH # 0.5 K/mm3 (1.2-3.4); LYMPH % 7.7 % (20.0-51.0); MEAN CELL VOLUME 98 fl (80.0-100.0); MEAN CORPUSCULAR HEMOGLOBIN 29 pg (27-31); MEAN CORPUSCULAR HGB CONC 30 g/dl (33.0-37.0); MEAN PLATELET VOLUME 10.5 fl (7.4-10.4); MONO # 0.7 K/mm3 (0.1-0.6); MONO % 9.9 % (1.7-9.3); PLATELET COUNT 147 K/mm3 (130-400); RED BLOOD COUNT 4.53 M/mm3 (4.20-5.60); REDCELL DISTRIBUTION WIDTH-CV 20.5 % (11.5-14.5)
[2022-09-05 11:30] LABS: ALBUMIN 3.4 gm/dL (3.5-5.0); BILIRUBIN,TOTAL 1.3 mg/dL (0.2-1.2); CALCIUM 9.2 mg/dL (8.4-10.2); CREATININE, serum 2.25 mg/dL (0.72-1.25); MAGNESIUM 2.3 mg/dL (1.6-2.6); PHOSPHOROUS 4.7 mg/dL (2.3-4.7); POTASSIUM 4.3 mmol/L (3.5-4.5); TOTAL PROTEIN 7.3 gm/dL (6.2-8.1)
[2022-09-05 13:21] LABS: COLLECTION METHOD CLEAN CATCH
[2022-09-05 13:27] LABS: PH 5.5 (5.0-8.5); URINE APPEARANCE Clear (CLEAR/HAZY); URINE BLOOD Negative (NEGATIVE); URINE COLOR Yellow (YELLOW); URINE GLUCOSE Negative (NEGATIVE); URINE KETONE Negative (NEGATIVE); URINE NITRATE Negative (NEGATIVE); URINE PROTEIN(semi-quant) TRACE (NEGATIVE); URINE UROBILINOGEN 0.2 E.U/dL (0.2-1.0)
[2022-09-05 13:47] LABS: INR 1.3 (0.8-3.0); PROTHROMBIN TIME 14.8 SECONDS (9.7-12.8)
[2022-09-05 14:07] VITALS: BP 119/71; PULSE 63
--- NOTE | 2022-09-05 14:09 | NUR ---
SEE MERGE FOR ALL MEDS, INTERVENTIONS AND VITALS. PATIENT SEVERELY FLUID OVERLOADED, INCREASED O2 ON ARRIVAL TO LAB, ON WEDGE.
[2022-09-05 14:24] LABS: ALBUMIN 3.2 gm/dL (3.5-5.0); BILIRUBIN,DIRECT 0.7 mg/dL (0.0-0.5); BILIRUBIN,TOTAL 1.2 mg/dL (0.2-1.2); TOTAL PROTEIN 7.2 gm/dL (6.2-8.1)
[2022-09-05 15:02] LABS: MUCOUS Present (NOT PRESENT); SQUAMOUS EPITHELIAL None Seen /hpf (0-10); URINE BACTERIA None Seen /hpf (NONE SEEN); URINE RBC None Seen /hpf (0-2)
--- NOTE | 2022-09-05 15:34 | NUR ---
Patient to dialysis room,322. Ross[place] dialysis nurse starting dialysis with at bedside. Patient placed in clean gown & new clean socks. Called [facility] for med list per patient request. He reports they would have most up to date list.
--- NOTE | 2022-09-05 15:47 | NUR ---
Patient brought to labor employment associate for tunnelled dialysis catheter insertion. Patient on 10L oxymask on arrival. required 15l nrb while on cath table. See merge report for vitals intraprocedural. DR Mulligan called by this RN to clarify if patient should be in ICU post procedure due to oxygen requirements/severe generalized edema/abg results. Dr Mulligan given patient status report and orders given to take patient to dialysis immediatly post line insertion and that patient is ok to go to medical floor after dialysis.
[2022-09-05] MEDS ORDERED: ZAROXOLYN 2.52.5 MG PO (16:04)
[2022-09-05] MEDS ORDERED: MIRALAX PA17 GM/Dose PO (16:05)
[2022-09-05 17:59] VITALS: BP 125/72; PULSE 72; TEMP 97.7
--- NOTE | 2022-09-05 18:45 | NUR ---
The patient has just returned from dialysis. He is eating dinner at this time. Denies any pain, states that he has some congestion which is normal for his condition. He denies any needs at this time. No other concerns.
--- NOTE | 2022-09-05 18:54 | NUR ---
patient sitting up in bed working on dinner tray. bedside report to rao.
[2022-09-05 19:44] VITALS: BP 123/67; PULSE 96; TEMP 97.4
[2022-09-05 23:21] LABS: HEPATITIS B SURFACE ANTIBODY <2.0 (()); HEPATITIS B SURFACE ANTIGEN Negative (Negative); HEPATITIS C VIRUS ANTIBODY Negative (Negative)
[2022-09-05 23:31] VITALS: BP 118/63; PULSE 72; TEMP 97.4
[2022-09-06] VITALS (7 sets, daily range): BP systolic 106–119; BP diastolic 49–63; PULSE 65–86; TEMP 97.2–98.2
[2022-09-06 06:24] LABS: ALBUMIN 3.1 gm/dL (3.5-5.0); BILIRUBIN,TOTAL 1.1 mg/dL (0.2-1.2); CALCIUM 9.1 mg/dL (8.4-10.2); CREATININE, serum 2.65 mg/dL (0.72-1.25); PHOSPHOROUS 4.9 mg/dL (2.3-4.7); POTASSIUM 4.3 mmol/L (3.5-4.5); TOTAL PROTEIN 7.2 gm/dL (6.2-8.1)
--- NOTE | 2022-09-06 07:09 | NUR ---
Received shift report from the night nurse, Carlos DARLING.
--- NOTE | 2022-09-06 08:06 | NUR ---
Patient resting in bed , alert and oriented. Dialysis cath on right chest intact. O2 in use. Patient has +3 generalized edema. Patient denies of shortness of breath. Patient will be having dialysis today. Patient has no needs and not in distress at this time. Call renee within reach.
--- NOTE | 2022-09-06 09:23 | NUR ---
Patient escorted to the dialysis room via recliner at 0900 for treatment.
--- NOTE | 2022-09-06 12:33 | NUR ---
SW met with pt to complete intake. Pt reports he is independent on all ADLS, but does use O2 through [employer]. His NK is his ,Elham @ [phone] and gets medications from [facility]. He reports his PCP is Dr. Schaefer [facility] but has not seen him in since 2008 and [address] works with Dr. Colindres. Pt reports no DOPA-HC and declined services. No other needs at this time. SW to await further recommendations and follow up as needed. DC: home.
--- NOTE | 2022-09-06 13:54 | NUR ---
Bladder scan performed per Doctor's orders. Patient has 1333ml of urine in the bladder. 16french indwelling catheter inserted. Patient tolerated procedure well.
--- NOTE | 2022-09-06 20:26 | NUR ---
PT COMPLAINING OF DISCOMFORT AT MCKEON SITE, MCKEON HAS BEEN ADVANCED AND MCKEON LINE NOT KINKED. PT HAS ONLY HAD 125 ML OF URINE OUT PER CHARTING TODAY. THIS RN CONTACTED DAVID PER PATIENTS REQUEST TO HAVE MCKEON PULLED. PT IS ON BUMEX DRIP RN WILL GIVE EDUCATION TO PATIENT TO ENSURE PATIENT HAS APPROPRIATE UNDERSTANDING OF THE MEDICATION, BUT RN WAS GIVEN ORDERS OF OK TO PULL MCKEON LONG THE PATIENT UNDERSTOOD THE MEDICATION HE IS CURRENTLY ON.
--- NOTE | 2022-09-06 21:50 | NUR ---
4725 PT CALLED RN TO BEDSIDE COMPLAINING OF ABD PAIN. PT REQUESTED TO PLEASE HAVE THE MCKEON REMOVED. RN REMOVED THE MCKEON THE PATIENT TOLERATED THIS WELL. THERE WAS ONE SMALL CLOT THAT CAME OUT WITH THE MCKEON BUT IT WAS NOT OBSTRUCTING THE MCKEON. PT STATED THAT HE ALREADY FEELS MUCH BETTER
--- NOTE | 2022-09-07 01:36 | NUR ---
0115 RN AT BEDSIDE TO CHECK TO SEE IF PATIENT HAD URINATED, PT DID URINATE. SEE CHARTING URINE NOW BECOMING MORE BLODDY THAN IT WAS IN THE MCKEON. PT ALSO VERY ANGRY THAT HIS HOME MEDICATION HAVE NOT BEEN RESTARTED. PT STATED "I HAVE BEEN HERE SINCE THURSDAY, SOMEONE IS GOING TO GET THEIR ASS CHEWED TOMORROW. THERE IS NO REASON THAT MY HOME MEDICATIONS SHOULDNT BE ORDERED. I WAS TOLD EARLIER TODAY THAT THE DOCTORS WERE LOOKING INTO IT." THIS RN TOLD THE PATIENT THAT IS ALSO WHAT SHE WAS GIVEN IN REPORT THAT CALLS WERE MADE TO THE PHYSCIAN TO HAVE THE HOME MEDICATIONS RESTARTED AND THEY WERE LOOKING INTO IT. PT EXPRESSED UNDERSTANDING THAT WE DID NOT HAVE THE ORDERS FOR THE MEDICATIONS. BUT STATED "I WILL BE DEALING WITH THIS TOMORROW" THIS RN TOLD THE PATIENT THAT SHE WILL ALSO PASS ALONG THE INFORMATION THE DAY SHIFT NURSE AND CHARGE NURSE TO ENSURE THAT THE MEDICATIONS GET HANDLED TOMORROW.
[2022-09-07 03:30] VITALS: BP 118/60; PULSE 80; TEMP 98.3
--- NOTE | 2022-09-07 04:16 | NUR ---
PT BLADDER SCANNED WITH 2CC IN THE BLADDER.
[2022-09-07 06:42] LABS: ALBUMIN 3.2 gm/dL (3.5-5.0); BILIRUBIN,TOTAL 1.2 mg/dL (0.2-1.2); CALCIUM 9.1 mg/dL (8.4-10.2); CREATININE, serum 2.75 mg/dL (0.72-1.25); PHOSPHOROUS 4.5 mg/dL (2.3-4.7); POTASSIUM 4.6 mmol/L (3.5-4.5); TOTAL PROTEIN 7.4 gm/dL (6.2-8.1)
[2022-09-07 07:46] VITALS: BP 122/52; PULSE 64; TEMP 97.6
--- NOTE | 2022-09-07 08:31 | NUR ---
Pt. sitting up in bed eating breakfast. Pt. is A&OX3, assessment complete. IV to rt. ac with bumex gtt infusing per orders. Pt. denies pain or other needs. Call light within reach.
[2022-09-07 12:41] VITALS: BP 132/60; PULSE 74; TEMP 98
--- NOTE | 2022-09-07 15:15 | NUR ---
Pt. to dialysis at this time.
[2022-09-07 16:42] VITALS: BP 122/61; PULSE 60; TEMP 98
[2022-09-07 19:33] VITALS: BP 113/63; PULSE 61; TEMP 97.9
--- NOTE | 2022-09-07 22:00 | NUR ---
Has been resting for the past couple hours- now awake, o2 at 3L/nc with sats 97%, states is not SOB when just lying in the bed, denies pain. Offered a snack and accepted- understands about his fluid restriction of 1500cc/24 hrs. Pt states tomorrow is having a Abd U/S to see if he needs a paracentesis- Tele on, Dialysis catheter to right chest, dressing intact.
[2022-09-08] VITALS (7 sets, daily range): BP systolic 95–111; BP diastolic 37–59; PULSE 30–77; TEMP 97.4–98.6
--- NOTE | 2022-09-08 06:15 | NUR ---
Quiet night-- no requests. VSS. Denies SOB at rest.
[2022-09-08 06:38] LABS: ALBUMIN 3.1 gm/dL (3.5-5.0); BILIRUBIN,TOTAL 1.1 mg/dL (0.2-1.2); CREATININE, serum 3.13 mg/dL (0.72-1.25); PHOSPHOROUS 4.5 mg/dL (2.3-4.7); POTASSIUM 4.7 mmol/L (3.5-4.5); TOTAL PROTEIN 7.3 gm/dL (6.2-8.1)
--- NOTE | 2022-09-08 06:57 | NUR ---
awake and sitting up on side of bed, bedside shift report received from PHONG Ramos
--- NOTE | 2022-09-08 07:50 | NUR ---
up to recliner independently
--- NOTE | 2022-09-08 08:20 | NUR ---
full assessment completed, see interventions for further info,
--- NOTE | 2022-09-08 09:45 | NUR ---
Initial visit; Patient declined Spiritual Care and stated he isn't going to get well. [employer] spoke with him a minute offering God's blessings.
--- NOTE | 2022-09-08 09:53 | NUR ---
abdominal ultrasound was completed, he is sitting up on side of bed at this time, denies needs
--- NOTE | 2022-09-08 11:00 | NUR ---
physical therapy in to work with patient
--- NOTE | 2022-09-08 11:24 | NUR ---
consent signed for paracentesis, resting in chair
--- NOTE | 2022-09-08 11:55 | NUR ---
to radiology per WC for US guided paracentesis
--- NOTE | 2022-09-08 13:15 | NUR ---
returned per WC from US after paracentesis, has bandaid to left side of abdomen and he states he also has a couple of sutues under bandaid, abdomen is still distended but less firm and he states he feels better, has decided to wait until after dialysis to take a shower, provided a box lunch before dialysis
--- NOTE | 2022-09-08 13:59 | NUR ---
ambulated across the nolen for dialysis
--- NOTE | 2022-09-08 14:20 | NUR ---
ambulated across nolen to dialysis room
--- NOTE | 2022-09-08 15:59 | NUR ---
remains in dialysis
--- NOTE | 2022-09-08 18:20 | NUR ---
returned to room from dialysis, given bathwipes and will provide himself with hygiene, has ordered supper
--- NOTE | 2022-09-08 18:53 | NUR ---
bedside shift report given to PHONG Valera
--- NOTE | 2022-09-08 20:32 | NUR ---
NOTIFIED BY PCT THAT BP WAS 95/37. NOTIFIED BEDROS AND ORDER TO HOLD SPIRINOLACTONE AND ENTRESTO FOR SYSTOLIC LESS THAN 95. ENTRESTO WAS ALREADY GIVEN. WILL HOLD SPIRINOLACTONE. NO NEW ORDERS AT THIS TIME.
[2022-09-09 03:07] VITALS: BP 107/52; PULSE 66; TEMP 98.2
[2022-09-09 06:59] LABS: ALBUMIN 2.9 gm/dL (3.5-5.0); CALCIUM 8.6 mg/dL (8.4-10.2); CREATININE, serum 3.52 mg/dL (0.72-1.25); PHOSPHOROUS 4.4 mg/dL (2.3-4.7); POTASSIUM 4.6 mmol/L (3.5-4.5); TOTAL PROTEIN 6.9 gm/dL (6.2-8.1)
[2022-09-09 07:16] VITALS: BP 94/48; PULSE 60; TEMP 98.1
--- NOTE | 2022-09-09 08:00 | NUR ---
Pt. sitting up in bed. Pt. is A&OX3, assessment complete. INT to rt. ac patent. Pt. denies pain or other needs, call light within reach.
[2022-09-09] MEDS ORDERED: ALDACTONE 25MG25 M1 PO (09:36)
[2022-09-09] MEDS ORDERED: DEMADEX100 MG PO (10:41)
[2022-09-09] MEDS ORDERED: ZAROXOLYN5 MG PO (10:42)
[2022-09-09] MEDS ORDERED: DOXYCYCLINE HY100 MG PO (11:22)
[2022-09-09] MEDS ORDERED: NEPHROCAP PO (11:23)
--- NOTE | 2022-09-09 12:50 | NUR ---
Pt. is ready for discharge. INT discontinued from rt. ac. Reviewed and gave discharge paperwork to the pt. Pt. voices understanding. Pt. escorted out by KILO
== END 2022-09-09 12:53 | disposition home or self-care (01) | DRG 673 ==
LOC: COL.ER 10:40 → SURG 11:47
PROVIDERS: Family Medicine; Registered Nurse; ADMIT Internal Medicine Nephrology
PROC: 0JH63XZ Insertion of Tunneled Vascular Access Device into Chest Subcutaneous Tissue and Fascia, Percutaneous Approach (ICD-10-PCS; principal; 2022-09-05)
PROC: 02HV33Z Insertion of Infusion Device into Superior Vena Cava, Percutaneous Approach (ICD-10-PCS; 2022-09-05)
PROC: 5A1D70Z Performance of Urinary Filtration, Intermittent, Less than 6 Hours Per Day (ICD-10-PCS; 2022-09-05)
PROC: 0W9G3ZX Drainage of Peritoneal Cavity, Percutaneous Approach, Diagnostic (ICD-10-PCS; 2022-09-08)
DX: N17.9 Acute kidney failure, unspecified (principal); I50.23 Acute on chronic systolic (congestive) heart failure; I13.0 Hypertensive heart and chronic kidney disease with heart failure and stage 1 through stage 4 chronic kidney disease, or unspecified chronic kidney disease; N18.32 Chronic kidney disease, stage 3b; K74.60 Unspecified cirrhosis of liver; J44.9 Chronic obstructive pulmonary disease, unspecified; Z20.822 Contact with and (suspected) exposure to COVID-19; I27.20 Pulmonary hypertension, unspecified; I25.10 Atherosclerotic heart disease of native coronary artery without angina pectoris; F17.210 Nicotine dependence, cigarettes, uncomplicated; E11.22 Type 2 diabetes mellitus with diabetic chronic kidney disease; Z95.5 Presence of coronary angioplasty implant and graft; Z79.01 Long term (current) use of anticoagulants; Z23 Encounter for immunization
CPT/HCPCS: C1751; J0690; J1644; J7030

== ENCOUNTER → 2022-10-03 | Outpatient (CLI) | payer BC ==
[~2022-10-03] VITALS: Ht 182.9 cm; Wt 116.0 kg
[~2022-10-03] MED LIST changes: +DEMADEX100 MG PO; +DOXYCYCLINE HY100 MG PO; +MIRALAX PA17 GM/Dose PO; +NEPHROCAP PO; +ZAROXOLYN 2.52.5 MG PO; +ZAROXOLYN5 MG PO
[2022-10-03 12:09] VITALS: BP 125/92; PULSE 85; TEMP 97.3
--- NOTE | 2022-10-03 12:43 | NUR ---
PROCEDURE CANCELLED BY DR SKINNER
== END ==
LOC: COL.RAD 11:26
DX: R18.8 Other ascites (principal)